=== PATIENT | male | born 1950 | race Caucasian/White ===

== ENCOUNTER 2017-03-30 07:36 | Inpatient (IN) | payer MEDICARE ==
[~2017-03-30] VITALS: Ht 172.7 cm; Wt 76.5 kg
[~2017-03-30 07:36] MED LIST: ASPI81 PO; HCTZ25 PO; LEVA500T33 PO; LEVO.125 PO; LISI-360 PO; LOVA1TAB47 PO
[2017-03-30 07:39] VITALS: BP 143/78; PULSE 97; RESP 18; TEMP 97.7; O2SAT 97
[2017-03-30] MEDS ORDERED: LOVA40TA PO (08:25)
[2017-03-30] MEDS ORDERED: HYDRODIURIL PO (08:25)
[2017-03-30] MEDS ORDERED: LEVO.125 PO (08:25)
[2017-03-30] MEDS ORDERED: LISI10TA3 PO (08:25)
[2017-03-30] MEDS ORDERED: ASPI-147 PO (08:25)
[2017-03-30 08:36] LABS: AUTOMATED NEUTROPHIL # 6.3 TH/MM3 (1.8-7.7); BASOPHIL # 0.1 TH/MM3 (0-0.2); EOSINOPHIL # 0.1 TH/MM3 (0-0.4); EOSINOPHIL % 1.4 % (0.0-4.0); HEMOGLOBIN 16.4 GM/DL (13.0-17.0); LYMPH % 15.2 % (9.0-44.0); LYMPHOCYTE # 1.4 TH/MM3 (1.0-4.8); MEAN CELL VOLUME 89.5 FL (80.0-100.0); MEAN CORPUSCULAR HEMOGLOBIN 31.3 PG (27.0-34.0); MEAN PLATELET VOLUME 7.3 FL (7.0-11.0); MONO % 11.9 % (0.0-8.0); MONOCYTE # 1.1 TH/MM3 (0-0.9); NEUT % 70.5 % (16.0-70.0); PLATELET COUNT 344 TH/MM3 (150-450); RED BLOOD COUNT 5.26 MIL/MM3 (4.50-5.90); RED CELL DISTRIBUTION WIDTH 13.5 % (11.6-17.2); WHITE BLOOD COUNT 8.9 TH/MM3 (4.0-11.0)
[2017-03-30 08:48] LABS: PROTHROMBIN TIME - PATIENT 9.9 SEC (9.8-11.6)
[2017-03-30 08:50] LABS: ALT (GPT) 14 U/L (12-78)
[2017-03-30 08:51] LABS: ALBUMIN 3.9 GM/DL (3.4-5.0); AST (GOT) 18 U/L (15-37); BICARBONATE 29.6 MEQ/L (21.0-32.0); BLOOD UREA NITROGEN 10 MG/DL (7-18); CALCIUM 9.2 MG/DL (8.5-10.1); CHLORIDE 100 MEQ/L (98-107); CREATININE 1.07 MG/DL (0.60-1.30); GLOMERULAR FILTRATION RATE 69 ML/MIN (>89); GLUCOSE,RANDOM 90 MG/DL (74-106); SODIUM (NA) 134 MEQ/L (136-145)
[2017-03-30 08:53] LABS: ALKALINE PHOSPHATASE 67 U/L (45-117); TOTAL BILIRUBIN ADULT 0.4 MG/DL (0.2-1.0); TOTAL PROTEIN 7.5 GM/DL (6.4-8.2)
--- NOTE | 2017-03-30 09:23 | RADRPT ---
EXAM DATE/TIME: 03/30/2017 08:28 [facility] COMPARISON: No previous studies available for comparison. INDICATIONS : Right leg pain. MEDICAL HISTORY : Hypothyroidism. Hypertension. Hyperlipidemia. SURGICAL HISTORY : Left femoral bypass. ENCOUNTER: Initial ACUITY: 3 days PAIN SCORE: 2/10 LOCATION: Left leg. TECHNIQUE: Venous ultrasound of the leg was performed from the inguinal ligament to the proximal calf. Real-usman e, color Doppler and spectral tracing, compression and augmentation techniques were used. FINDINGS: There is normal compressibility of the deep venous system from the inguinal region to the proximal ca lf. No echogenic clot is seen in the lumen of the common femoral, femoral, popliteal, and posterior tibial veins. There is a normal response of the venous system to proximal and distal augmentation an d respiration. There is thrombosis of the femoral bypass graft. CONCLUSION: 1. No DVT right leg. 2. The femoral bypass graft appears occluded. Heber Valenzuela MD on March 30, 2017 at 9:18 Board Certified Radiologist. This report was verified electronically.
--- NOTE | 2017-03-30 09:59 | PD ---
HPI Chief Complaint: Musculoskeletal Complaint Time Seen by Provider: 08:03 Travel History International Travel<30 days: No Contact w/Intl Traveler<30days: No Traveled to known affect area: No History of Present Illness HPI 67-year-old male presents to the emergency department with a history of charley horse symptoms in the right calf Thursday night, with residual pain into the right medial thigh since that time. Denies continued pain in the lower extremity at this time. Patient has history of femoropopliteal bypass with Dr. Flores in 2014. He shouldn't was recently scheduled to have follow-up with him on February 25 but did not have his vascular scan prior to his visit so this was rescheduled. Patient states the pain is worse at night when he and when he first gets up. It seems to improve with ambulation. He denies numbness and tingling or weakness in the lower extremity on the right. His no other complaints. PFSH Past Medical History Cardiovascular Problems: Yes (BYPASS LEG, DR FLORES) High Cholesterol: Yes Hypertension: Yes Thyroid Disease: Yes (HYPO) Triglycerides - High: Yes Past Surgical History Other Surgery: Yes (RIGHT LEG FEM POP) Social History Alcohol Use: Yes (OCCASSIONAL) Tobacco Use: Yes (1 PPD) Substance Use: No Allergies-Medications (Allergen,Severity, Reaction): Coded Allergies: No Known Allergies (Verified , 03/19/13) Reported Meds & Prescriptions Reported Meds & Active Scripts Active Reported Lovastatin 40 Mg Tab 60 Mg PO DAILY Lisinopril 10 Mg Tab 10 Mg PO DAILY [Hydrodiuril] 25 Mg PO Ecotrin Low Strength (Aspirin) 81 Mg Tabdr 81 Mg PO DAILY Synthroid (Levothyroxine Sodium) 125 Mcg Tab 125 Mcg PO DAILY Review of Systems Except as stated in HPI: all other systems reviewed are Neg General / Constitutional: No: Fever Eyes: No: Visual changes HENT: No: Headaches Cardiovascular: No: Chest Pain or Discomfort Respiratory: No: Shortness of Breath Gastrointestinal: No: Abdominal Pain Genitourinary: No: Dysuria Musculoskeletal: Positive: Myalgias, No: Pain Skin: No Rash Neurologic: No: Weakness Psychiatric: No: Depression Endocrine: No: Polydipsia Hematologic/Lymphatic: No: Easy Bruising Physical Exam Narrative GENERAL: Patient appears in no obvious distress. SKIN: Warm and dry. Color. Normal turgor. The right lower extremity has some decreased pallor and question mottling of the toes. This area is cool to the touch, but nontender. HEAD: Atraumatic. Normocephalic. EYES: Pupils equal and round. No scleral icterus. No injection or drainage. ENT: No nasal bleeding or discharge. Mucous membranes pink and moist. NECK: Trachea midline. No JVD. CARDIOVASCULAR: Regular rate and rhythm. Murmurs gallops or rubs appreciated. Pulses are not appreciated in the right foot or posterior tibialis with Doppler. RESPIRATORY: No accessory muscle use. Clear to auscultation. Breath sounds equal bilaterally. GASTROINTESTINAL: Abdomen soft, non-tender, nondistended. Hepatic and splenic margins not palpable. MUSCULOSKELETAL: Extremities without clubbing, cyanosis, or edema. No obvious deformities. NEUROLOGICAL: Awake and alert. No obvious cranial nerve deficits. Motor grossly within normal limits. Five out of 5 muscle strength in the arms and legs. Normal speech. PSYCHIATRIC: Appropriate mood and affect; insight and judgment normal. Data Data Last Documented VS Vital Signs Date Time Temp Pulse Resp B/P (MAP) Pulse Ox O2 Delivery O2 Flow Rate FiO2 03/30/17 07:39 97.7 97 18 143/78 (99) 97 Room Air Orders Orders Us Leg Venous Doppler (03/30/17 08:12) Complete Blood Count With Diff (03/30/17 08:12) Comprehensive Metabolic Panel (03/30/17 08:12) Prothrombin Time / Inr (Pt) (03/30/17 08:12) Act Partial Throm Time (Ptt) (03/30/17 08:12) Heparin Inj (Heparin Inj) (03/30/17 10:15) Heparin-D5w 25,000 U/250 Ml (Heparin-D5w (03/30/17 10:15) Act Partial Throm Time (Ptt) (03/30/17 10:06) Cbc No Diff, Includes Plts (03/30/17 10:06) Cbc No Diff, Includes Plts (04/02/17 06:00) Act Partial Throm Time (Ptt) (03/30/17 17:06) Occult Blood (Hemoccult) Stool (03/30/17 10:06) Invasive Rad Dept Consult (03/30/17 ) Labs Laboratory Tests Test 03/30/17 08:20 White Blood Count 8.9 TH/MM3 Red Blood Count 5.26 MIL/MM3 Hemoglobin 16.4 GM/DL Hematocrit 47.0 % Mean Corpuscular Volume 89.5 FL Mean Corpuscular Hemoglobin 31.3 PG Mean Corpuscular Hemoglobin Concent 35.0 % Red Cell Distribution Width 13.5 % Platelet Count 344 TH/MM3 Mean Platelet Volume 7.3 FL Neutrophils (%) (Auto) 70.5 % Lymphocytes (%) (Auto) 15.2 % Monocytes (%) (Auto) 11.9 % Eosinophils (%) (Auto) 1.4 % Basophils (%) (Auto) 1.0 % Neutrophils # (Auto) 6.3 TH/MM3 Lymphocytes # (Auto) 1.4 TH/MM3 Monocytes # (Auto) 1.1 TH/MM3 Eosinophils # (Auto) 0.1 TH/MM3 Basophils # (Auto) 0.1 TH/MM3 CBC Comment DIFF FINAL Differential Comment Prothrombin Time 9.9 SEC Prothromb Time International Ratio 1.0 RATIO Activated Partial Thromboplast Time 23.8 SEC Blood Urea Nitrogen 10 MG/DL Creatinine 1.07 MG/DL Random Glucose 90 MG/DL Total Protein 7.5 GM/DL Albumin 3.9 GM/DL Calcium Level 9.2 MG/DL Alkaline Phosphatase 67 U/L Aspartate Amino Transf (AST/SGOT) 18 U/L Alanine Aminotransferase (ALT/SGPT) 14 U/L Total Bilirubin 0.4 MG/DL Sodium Level 134 MEQ/L Potassium Level 4.4 MEQ/L Chloride Level 100 MEQ/L Carbon Dioxide Level 29.6 MEQ/L Anion Gap 4 MEQ/L Estimat Glomerular Filtration Rate 69 ML/MIN MDM Medical Decision Making Medical Screen Exam Complete: Yes Emergency Medical Condition: Yes Differential Diagnosis DVT. Thrombosis of graft. Claudication. Narrative Course Patient is medically stable at time of exam. Including CBC, CMP, and coagulation studies. Ultrasound of the right lower extremities ordered. CBC is unremarkable. Coagulation studies show PT of 9.9, INR 1.0, APTT is 23.8. Chemistries are normal. Ultrasound shows no DVT to the right leg but the femoral bypass graft appears included per radiologist. Call was placed to Dr. Flores, the patient's vascular surgeon, and he recommends consulting interventional radiologist to angiogram from the lysis of the graft. Patient is started on heparin per DVT protocol. Call was placed hospitalist for admission. Consult was placed to interventional radiology for the angiogram/thrombolysis. Condition: Stable Ryan Gibson Mar 30, 2017 09:59
[2017-03-30] MEDS ORDERED: HEPARIN SODIUM - IV 10,000 UNITS/10 ML VIAL IV PUSH ONE (10:15)
[2017-03-30 10:26] VITALS: BP 143/73; PULSE 78; RESP 18; O2SAT 96
--- NOTE | 2017-03-30 10:29 | PD ---
Data Data Last Documented VS Vital Signs Date Time Temp Pulse Resp B/P (MAP) Pulse Ox O2 Delivery O2 Flow Rate FiO2 03/30/17 10:26 78 18 143/73 (96) 96 Room Air 03/30/17 07:39 97.7 Orders Orders Us Leg Venous Doppler (03/30/17 08:12) Complete Blood Count With Diff (03/30/17 08:12) Comprehensive Metabolic Panel (03/30/17 08:12) Prothrombin Time / Inr (Pt) (03/30/17 08:12) Act Partial Throm Time (Ptt) (03/30/17 08:12) Heparin Inj (Heparin Inj) (03/30/17 10:15) Heparin-D5w 25,000 U/250 Ml (Heparin-D5w (03/30/17 10:15) Act Partial Throm Time (Ptt) (03/30/17 10:06) Cbc No Diff, Includes Plts (03/30/17 10:06) Cbc No Diff, Includes Plts (04/02/17 06:00) Act Partial Throm Time (Ptt) (03/30/17 17:06) Occult Blood (Hemoccult) Stool (03/30/17 10:06) Admit Order (Ed Use Only) (03/30/17 10:21) Invasive Rad Dept Consult (03/30/17 10:21) Admit To Inpatient (03/30/17 ) Vital Signs (Adult) [place].Q4H (03/30/17 10:21) Inpatient Certification (03/30/17 ) Activity Bed Rest With Brp (03/30/17 10:21) Diet Npo Except Meds (03/30/17 Lunch) Acetaminophen (Tylenol) (03/30/17 10:30) Ondansetron Inj (Zofran Inj) (03/30/17 10:30) Morphine Inj (Morphine Inj) (03/30/17 10:30) Acetamin-Hydrocod 325-5 Mg (Wendell 5-325 (03/30/17 10:30) Complete Blood Count With Diff (03/31/17 06:00) Basic Metabolic Panel (Bmp) (03/31/17 06:00) Magnesium (Mg) (03/31/17 06:00) Levothyroxine (Synthroid) (03/31/17 09:00) Lisinopril (Prinivil) (03/31/17 09:00) Pravastatin (Pravachol) (03/31/17 09:00) Clonidine (Catapres) (03/30/17 10:30) Enalaprilat Inj (Vasotec Inj) (03/30/17 10:30) Labs Laboratory Tests Test 03/30/17 08:20 White Blood Count 8.9 TH/MM3 Red Blood Count 5.26 MIL/MM3 Hemoglobin 16.4 GM/DL Hematocrit 47.0 % Mean Corpuscular Volume 89.5 FL Mean Corpuscular Hemoglobin 31.3 PG Mean Corpuscular Hemoglobin Concent 35.0 % Red Cell Distribution Width 13.5 % Platelet Count 344 TH/MM3 Mean Platelet Volume 7.3 FL Neutrophils (%) (Auto) 70.5 % Lymphocytes (%) (Auto) 15.2 % Monocytes (%) (Auto) 11.9 % Eosinophils (%) (Auto) 1.4 % Basophils (%) (Auto) 1.0 % Neutrophils # (Auto) 6.3 TH/MM3 Lymphocytes # (Auto) 1.4 TH/MM3 Monocytes # (Auto) 1.1 TH/MM3 Eosinophils # (Auto) 0.1 TH/MM3 Basophils # (Auto) 0.1 TH/MM3 CBC Comment DIFF FINAL Differential Comment Prothrombin Time 9.9 SEC Prothromb Time International Ratio 1.0 RATIO Activated Partial Thromboplast Time 23.8 SEC Blood Urea Nitrogen 10 MG/DL Creatinine 1.07 MG/DL Random Glucose 90 MG/DL Total Protein 7.5 GM/DL Albumin 3.9 GM/DL Calcium Level 9.2 MG/DL Alkaline Phosphatase 67 U/L Aspartate Amino Transf (AST/SGOT) 18 U/L Alanine Aminotransferase (ALT/SGPT) 14 U/L Total Bilirubin 0.4 MG/DL Sodium Level 134 MEQ/L Potassium Level 4.4 MEQ/L Chloride Level 100 MEQ/L Carbon Dioxide Level 29.6 MEQ/L Anion Gap 4 MEQ/L Estimat Glomerular Filtration Rate 69 ML/MIN [facility] Supervised Visit with WILDA: Yes Narrative Course The history, exam, and medical decision-making in the associated midlevel provider note were completed with my assistance. I reviewed and agree with the findings presented. I attest that I had a [id number] encounter with the patient on the same day, and personally performed and documented my assessment and findings in the medical record. *My assessment and Findings: This is a 67-year-old male who has a history of femoropopliteal bypass performed by Dr. Flores who presents to the department with 3 days of pain and cramping in his right leg associated with illness. On exam he has no palpable pulse and a cool lower extremity. Ultrasound demonstrates an occlusion of the bypass consistent with his clinical exam. Physician wet process miller head assistant spoke to Dr. Flores. Patient was started on heparin and will be admitted for interventional radiology attempt thrombolysis. Condition: Stable Jaki Macias MD Mar 30, 2017 10:29
[2017-03-30] MEDS ORDERED: MORPHINE SULFATE 2 MG/ML INJ IV PUSH PRN (11:00)
[2017-03-30] MEDS ORDERED: HEPARIN-D5W 25,000 U/250 ML 250 ML IV PRN (11:00)
[2017-03-30] MEDS ORDERED: ACETAMINOPHEN 325 MG TAB PO PRN (11:00)
[2017-03-30] MEDS ORDERED: cloNIDine HCL 0.1 MG TAB PO PRN (11:00)
[2017-03-30] MEDS ORDERED: ENALAPRILAT 1.25 MG/ML VIAL IV PUSH PRN (11:00)
[2017-03-30] MEDS ORDERED: ONDANSETRON HCL 4 MG/2 ML VIAL IV PRN (11:00)
[2017-03-30] MEDS ORDERED: ACETAMINOPHEN/HYDROcodone 325 MG/5 MG TAB PO PRN (11:00)
[2017-03-30] MEDS: LEVOTHYROXINE SODIUM 125 MCG TAB PO SCH (11:00)
--- NOTE | 2017-03-30 11:20 | HHI.HP ---
HPI Service [facility] Hospitalists Primary Care Physician Herbert Bravo MD Admission Diagnosis arterial occlusion Chief Complaint: Right calf pain Travel History International Travel<30 Days: No Contact w/Intl Traveler <30 Da: No Traveled to Known Affected Are: No History of Present Illness Mr. Miller is a pleasant 67 y/o WM with PVD s/p right fem-pop [place] [address] Folres, HTN, hyperlipidemia, and tobacco use. He presented to the ED at [facility] on 03/30/17 with complaints of right calf pain and right foot coolness that began about 2-3 days ago. He states that he started noticing some cramping pain in the right calf Thursday night, with residual pain into the right medial thigh since that time. He was recently scheduled to see Dr. Flores in follow-up on February 25 but did not have his vascular scan done prior to his visit so this was rescheduled. Patient states the pain is worse at night when he and when he first gets up. They were unable to get pulses in the right foot on Dopplar so LE US performed in the ED revealed a thrombus in the femoral bypass graft, there was no evidence of DVT. Dr. Flores was contacted from the ED and he recommended IR evaluation for possible thrombolysis. Pt has been started on a heparin gtt. Review of Systems Constitutional: DENIES: Fever, Chills, Change in appetite Eyes: DENIES: Vision loss Ears, nose, mouth, throat: DENIES: Hearing loss Respiratory: DENIES: Shortness of breath Cardiovascular: COMPLAINS OF: Claudication, DENIES: Chest pain, Palpitations, Lower Extremity Edema Gastrointestinal: DENIES: Abdominal pain, Black stools, Bloody stools, Diarrhea , Nausea, Vomiting Genitourinary: DENIES: Hematuria, Dysuria Neurologic: DENIES: Headache, Paresthesias Psychiatric: DENIES: Confusion Past Family Social History Past Medical History HTN Hyperlipidemia Hypertensive CKD, stage 2 Hypothyroidism PVD Vitamin D deficiency Diverticulosis Carotid artery stenosis Past Surgical History Fem-Pop bypass in 01/[address] 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 HEENT: Atraumatic. Normocephalic. No temporal or scalp tenderness. No scleral icterus. Airway patent. NECK: Trachea midline, supple, nontender CARDIO: Regular. RESP: CTA bilaterally. No wheezes, rales, or rhonchi. ABD: +BS, soft, non-tender, nondistended. EXT: RLE has some decreased pallor and slight mottling of the toes. Right foot is cool to the touch, but nontender. Pulses are not appreciated in the right foot or posterior tibialis with Doppler. NEURO: Awake and alert. Motor and sensory grossly within normal limits. Normal speech. Laboratory Laboratory Tests Test 03/30/17 08:20 White Blood Count 8.9 Red Blood Count 5.26 Hemoglobin 16.4 Hematocrit 47.0 Mean Corpuscular Volume 89.5 Mean Corpuscular Hemoglobin 31.3 Mean Corpuscular Hemoglobin Concent 35.0 Red Cell Distribution Width 13.5 Platelet Count 344 Mean Platelet Volume 7.3 Neutrophils (%) (Auto) 70.5 Lymphocytes (%) (Auto) 15.2 Monocytes (%) (Auto) 11.9 Eosinophils (%) (Auto) 1.4 Basophils (%) (Auto) 1.0 Neutrophils # (Auto) 6.3 Lymphocytes # (Auto) 1.4 Monocytes # (Auto) 1.1 Eosinophils # (Auto) 0.1 Basophils # (Auto) 0.1 CBC Comment DIFF FINAL Differential Comment Prothrombin Time 9.9 Prothromb Time International Ratio 1.0 Activated Partial Thromboplast Time 23.8 Blood Urea Nitrogen 10 Creatinine 1.07 Random Glucose 90 Total Protein 7.5 Albumin 3.9 Calcium Level 9.2 Alkaline Phosphatase 67 Aspartate Amino Transf (AST/SGOT) 18 Alanine Aminotransferase (ALT/SGPT) 14 Total Bilirubin 0.4 Sodium Level 134 Potassium Level 4.4 Chloride Level 100 Carbon Dioxide Level 29.6 Anion Gap 4 Estimat Glomerular Filtration Rate 69 Result Diagram: 03/30/1781903/30/17819 Imaging Last Impressions Lower Extremity Ultrasound 03/30/17811 Signed Impressions: Service Date/Time: Thursday, March 30, 2017 08:28 - CONCLUSION: 1. No DVT right leg. 2. The femoral bypass graft appears occluded. MD Mackenzie Roberto VTE Risk Assessment Mackenzie VTE Risk Assessment: Mod/High Risk (score >= 2) Caprini Risk Assessment Model Point Value = 1 Point Value = 2 Point Value = 3 Point Value = 5 Age 41-60 Minor surgery BMI > 25 kg/m2 Swollen legs Varicose veins or History of unexplained or recurrent spontaneous Oral contraceptives or hormone replacement Sepsis (< 1 month) Serious lung disease, including pneumonia (< 1 month) Abnormal pulmonary function Acute myocardial infarction Congestive heart failure (< 1 month) History of inflammatory bowel disease Medical patient at bed rest Age 61-74 Arthroscopic surgery Major open surgery (> 45 min) Laparoscopic surgery (> 45 min) Malignancy Confined to bed (> 72 hours) Immobilizing plaster cast Central venous access Age >= 75 History of VTE Family history of VTE Factor V Leiden Prothrombin [id number] Lupus anticoagulant Anticardiolipin antibodies Elevated serum homocysteine Heparin-induced thrombocytopenia Other congenital or acquired thrombophilia Stroke (< 1 month) Elective arthroplasty Hip, pelvis, or leg fracture Acute spinal cord injury (< 1 month) Prophylaxis Regimen Total Risk Factor Score Risk Level Prophylaxis Regimen 0-1 Low Early ambulation 2 Moderate Order ONE of the following: *Sequential Compression Device (SCD) *Heparin 5000 units SQ BID 3-4 Higher Order ONE of the following medications: *Heparin 5000 units SQ TID *Enoxaparin/Lovenox 40 mg SQ daily (WT < 150 kg, CrCl > 30 mL/min) *Enoxaparin/Lovenox 30 mg SQ daily (WT < 150 kg, CrCl > 10-29 mL/min) *Enoxaparin/Lovenox 30 mg SQ BID (WT < 150 kg, CrCl > 30 mL/min) AND/OR *Sequential Compression Device (SCD) 5 or more Highest Order ONE of the following medications: *Heparin 5000 units SQ TID (Preferred with Epidurals) *Enoxaparin/Lovenox 40 mg SQ daily (WT < 150 kg, CrCl > 30 mL/min) *Enoxaparin/Lovenox 30 mg SQ daily (WT < 150 kg, CrCl > 10-29 mL/min) *Enoxaparin/Lovenox 30 mg SQ BID (WT < 150 kg, CrCl > 30 mL/min) AND *Sequential Compression Device (SCD) Assessment and Plan Problem List: (1) Arterial occlusion, lower extremity ICD Codes: I70.209 - Unspecified atherosclerosis of [place] arteries of extremities, unspecified extremity Status: Acute Plan: - Pt is a 67 y/o WM with PVD s/p right fem-pop [place] [address] Flores, HTN, hyperlipidemia, and tobacco use. - He presented to the ED at [facility] on 03/30/17 with complaints of right calf pain and right foot coolness that began about 2-3 days ago. - Pts RLE and foot were noticibly cooler than his left on examination. They were unable to get pulses in the right foot on Dopplar - LE US performed in the ED revealed a thrombus in the femoral bypass graft, there was no evidence of DVT. - Dr. Flores was contacted from the ED and he recommended IR evaluation for possible thrombolysis. - CTA is pending - IR consultation is ordered - Pt has been started on Heparin gtt per protocol - Pain control PRN - Supportive care - Further recommendations as the case develops (2) HTN (hypertension) ICD Codes: I10 - Essential (primary) hypertension Status: Chronic Plan: - Home meds resumed except HCTZ - Monitor - Vasotec and Clonidine PRN (3) PVD (peripheral vascular disease) ICD Codes: I73.9 - Peripheral vascular disease, unspecified Status: Chronic Plan: - Pt has previously underwent Fem-Pop bypass in 01/[address] Flores and arthrectomy of right popliteal artery in 01/2008 (4) Hypothyroidism ICD Codes: E03.9 - Hypothyroidism, unspecified Status: Chronic Plan: - Home meds resumed Assessment and Plan Patient examined. Assessment and plan formulated with Josselin Goncalves PA-C. I agree with the above. Physician Certification 2 Midnight Certification Type: Admission for Inpatient Services Order for Inpatient Services The services are ordered in accordance with Medicare regulations or non- Medicare payer requirements, as applicable. In the case of services not specified as inpatient-only, they are appropriately provided as inpatient services in accordance with the 2-midnight benchmark. Estimated LOS (days): 3 3 days is the estimated time the patient will need to remain in the hospital, assuming treatment plan goals are met and no additional complications. Post-Hospital Plan: Not yet determined Josselin Goncalves Mar 30, 2017 11:20 Hill Miles DO Apr 02, 2017 13:49
[2017-03-30] MEDS ORDERED: IOHEXOL 350 MG/ML 10 ML VIAL (for RAD DIAG) IVCONTRAST ONE (11:40)
[2017-03-30] MEDS: NS + KCL 20 MEQ INJ 1,000 ML IV SCH (12:47)
--- NOTE | 2017-03-30 14:23 | RADRPT ---
EXAM DATE/TIME: 03/30/2017 11:15 [facility] COMPARISON: No previous studies available for comparison. INDICATIONS : Right leg pain for 3 days. Abnormal ultrasound IV CONTRAST: 75 cc Omnipaque 350 (iohexol) IV RADIATION DOSE: 10.10 CTDIvol (mGy) MEDICAL HISTORY : Hypertension. Cardiovascular disease SURGICAL HISTORY : right leg fem pop bypass graft ENCOUNTER: Initial ACUITY: 3 days PAIN SCALE: 10/10 LOCATION: Right leg TECHNIQUE: Volumetric scanning was performed using a multi-row detector CT scanner. The data was post processed with a variety of visualization algorithms including full volume maximum intensity projection, multi -planar sliding thin slab reformation, curved planar reformation, and surface rendering techniques. Using automated exposure control and adjustment of the mA and/or kV according to patient size, radiat ion dose was kept as low as reasonably achievable to obtain optimal diagnostic quality images. DICO M format image data is available electronically for review and comparison. FINDINGS: Aorta/inflow: Scattered calcified atherosclerotic plaque involving the infrarenal aorta and inflow vessels. These a re patent and without aneurysmal change. Both internal iliac arteries are patent. The celiac, SMA, IM A, and renal arteries are patent. Right lower extremity: There is a common femoral artery to above-knee popliteal artery bypass. This is thrombosed. The profu nda femoris is patent. The the zuni SFA and [id number] popliteal artery is thrombosed. At the l evel of the tibial plateaus there is reconstitution of the zuni popliteal artery. This is distal to the distal anastomosis. All 3 trifurcation vessels are occluded. The anterior tibial artery occludes at the level of the ankle joint. No dorsalis pedis artery is observed. The posterior tibial artery o ccludes within the distal calf. Peroneal artery is occluded at its origin. Left lower extremity: The outflow is patent. The anterior tibial artery is the dominant runoff to the foot. Several mild st enoses are seen proximally the dorsalis pedis artery is formed. Tibioperoneal trunk shows calcified p laque with mild areas of luminal narrowing. Posterior tibial artery is chronically occluded within th e distal calf. Peroneal artery is diffusely small in caliber and slowly tapers proximal to the ankle joint. Other structures: The liver is diffusely low in attenuation. A 1 cm cyst is seen involving segment 4 of the liver. Scat tered colonic diverticuli without acute inflammation. CONCLUSION: 1. Acute thrombosis of the femoropopliteal bypass on the right. Thrombus extends throughout the bypas s and into the zuni [id number] popliteal artery. The right inflow is patent. Poor evaluation th e outflow with no named vessel observed across the ankle joint. 2. Left inflow is patent. Outflow is via the anterior tibial artery. 3. Hepatic steatosis. 4. Colonic diverticulosis. Juan Austin Jr., MD on March 30, 2017 at 13:24 Board Certified Radiologist. This report was verified electronically.
[2017-03-30] MEDS ORDERED: MIDAZOLAM HCL 2 MG/2 ML VIAL ONE ×2 (14:33)
[2017-03-30] MEDS ORDERED: ceFAZolin 2 GM PREMIX 50 ML ONE (14:57)
--- NOTE | 2017-03-30 15:57 | PD.RAD ---
Post Procedure Progress Note Pre Procedure Diagnosis: (1) Arterial occlusion, lower extremity Post Procedure Diagnosis: (1) Arterial occlusion, lower extremity Procedure Date: Mar 30, 2017 Supervising Radiologist: Juan Austin JR Proceduralist/Assist: Amber Harkins, RT(R)(CV), Joaquin Shine, RT(R) Anesthesia: Conscious Sedation Plan of Activity Patient to Unit: Critical Care Patient Condition: Good See PACS Report for procedural detail/treatment Vascular-Arterial Procedure Procedure 1 Procedure Site: Right Leg Procedure(s): Angiogram, Thrombolysis Access Access Site(s): Left Femoral Artery Sheath(s) Remaining: Left Femoral Artery Findings: Limb threatening ischemia of right foot. Began 3 days ago. Sensory and motor function of right foot preserved. Angio shows acute occlusion of right fem-above knee pop bypass. Poor runoff without named vessel below ankle joint. Placed infusion catheter. Infuse TPA at 1mg/hr. Heparin 500U/hr. Return tomorrow morning for f/u angio. Plan ICU per protocol. Return tomorrow morning for f/u angio Jr. Norman,Juan Shankar MD Mar 30, 2017 15:57
[2017-03-30] MEDS: CATHFLO ACTIVASE INJ 10 MG in SODIUM CHLORID 0.9% 500 ML INJ 500 ML I-ARTERIAL PRN (17:00)
[2017-03-30 18:00] VITALS: PULSE 83
--- NOTE | 2017-03-30 18:04 | RADRPT ---
EXAM DATE/TIME: 03/30/2017 14:47 [facility] COMPARISON: No previous studies available for comparison. INDICATIONS : <<67-year-old gentleman with history of a right femoropopliteal bypass performed several years ago fo r a nonhealing ulcer involving the right foot. The patient now reports 3 days of right foot pain whic h has progressed from onset. Sensory and motor function of the right foot are preserved. Limb threate nicol ischemia noted. Angiography with intervention requested. MEDICAL HISTORY : <<High cholesterol HTN HYPO High triglycerides Cardiovascular disease>> SURGICAL HISTORY : <<Right leg FEM POP Bypass leg>> ENCOUNTER: Initial ACUITY: 1 day PAIN SCORE: 2/10 LOCATION: Right leg FLUORO TIME: <<7.8>> minutes IMAGE SERIES: 6 ACCESS SITE: Right Femoral artery SEDATION TIME: <<45>> minutes CONTRAST: 1.) <<70>> <<cc>> Visipaque (iodixanol) MEDICATION(S): 1.) <<2>> g cefazolin (Ancef) IV 2.) <<175>> mcg fentanyl (Sublimaze) IV 3.) <<3.5>> mg midazolam (Versed) IV Intra-procedural antibiotics were given as prescribed above. DEVICE(S): 1.) Right femoral popliteal graft artery <<5fr 50cm 135 shaft>> EV3 Infusion catheter PROCEDURE : 1. Ultrasound-guided puncture of the access site. 2. Conscious sedation with continuous EKG and oximetry monitoring. 3. Angiography of the <<right lower extremity>> 4. Angiography of the right below knee popliteal artery 5. Infusion for thrombolysis The risks, benefits and alternatives to the procedure were explained and verbal and written consent w as obtained. The site was prepped in sterile fashion. Full sterile technique was used, including ca p, mask, sterile gloves and gown and a large sterile sheet. Hand hygiene and 2% chlorhexidine and/or betadine/alcohol prep was utilized per protocol for cutaneous antisepsis. Sterile gel and sterile p robe cover were utilized for ultrasound guidance. The skin and subcutaneous tissues were infiltrated with local anesthetic solution. With ultrasound and fluoroscopic guidance the left common femoral artery was punctured and a vascular sheath was placed. <<The contralateral external iliac artery was selected with a omni-flush catheter. A staged right low er extremity angiogram was performed from the level of the groin to the foot. These diagnostic images reveal patent and flow on the right. The profunda femoris is patent. There is acute occlusion of the common femoral artery to above-knee popliteal artery bypass. There is occlusion of the [place] SFA an d popliteal artery. There is late reconstitution of the [place] popliteal artery below the distal anas tomosis. There is reconstitution of the anterior tibial artery which occludes in the distal calf. The peroneal artery shows diffuse small caliber and chronic occlusion at the mid calf. Posterior tibial artery is occluded. A 6 [place] Rabbi sheath was positioned in the common femoral artery on the right. A Actively Learn catheter was used to traverse the occluded bypass and utilized to select the patent [place] knee popliteal artery. Diagnostic angiography of the right lower leg was performed for this level to better highlight the anatomy. A 5 [place] 50 cm infusion length catheter was positioned throughout the bypass. The sheath was sutured in place. TPA thrombolysis was instituted at 1 mg per hour.>> Conscious sedation was performed with the prescribed dosages and duration as above in the presence of an independent trained radiology nurse to assist in the monitoring of the patient. EKG and oximetry remained stable throughout the procedure. CONCLUSION: Uncomplicated initiation of thrombolytic therapy as above. The patient has limb threatening ischemia of the right foot with preserved sensory and motor function. There is acute occlusion of the femoropo pliteal bypass as well as the distal trifurcation vessels. No named vessel is seen crossing the ankle joint. The patient will return tomorrow for followup angiogram. Juan Austin Jr., MD on March 30, 2017 at 17:55 Board Certified Radiologist. This report was verified electronically.
[2017-03-30] MEDS ORDERED: IODIXANOL 320 MG/ML 10 ML VIAL (for RAD SPEC) OTHER ONE (18:40)
[2017-03-30 18:45] LABS: HEMATOCRIT 43.7 % (39.0-51.0); HEMOGLOBIN 15.1 GM/DL (13.0-17.0); MEAN CELL VOLUME 89.8 FL (80.0-100.0); MEAN CORPUSCULAR HGB CONC 34.5 % (32.0-36.0); MEAN PLATELET VOLUME 7.6 FL (7.0-11.0); PLATELET COUNT 309 TH/MM3 (150-450); RED BLOOD COUNT 4.87 MIL/MM3 (4.50-5.90); RED CELL DISTRIBUTION WIDTH 13.5 % (11.6-17.2); WHITE BLOOD COUNT 10.7 TH/MM3 (4.0-11.0)
[2017-03-30 20:00] VITALS: PULSE 69
[2017-03-30] MEDS ORDERED: CHLORHEXIDINE GLUCONATE 2 % 1 PACK (2 CLOTHS)(extra cloths) TOPICAL PRN (20:00)
[2017-03-30 20:11] VITALS: O2SAT 94
[2017-03-30] MEDS: HYDROmorphone HCL PF 2 MG/ML VIAL IV PRN (20:12)
[2017-03-30 22:00] VITALS: PULSE 80
[2017-03-30 22:12] LABS: AUTOMATED NEUTROPHIL # 11.4 TH/MM3 (1.8-7.7); BASOPHIL # 0.1 TH/MM3 (0-0.2); BASOPHIL % 0.7 % (0.0-2.0); EOSINOPHIL # 0.1 TH/MM3 (0-0.4); EOSINOPHIL % 0.6 % (0.0-4.0); HEMATOCRIT 42.4 % (39.0-51.0); HEMOGLOBIN 14.5 GM/DL (13.0-17.0); LYMPH % 4.9 % (9.0-44.0); LYMPHOCYTE # 0.7 TH/MM3 (1.0-4.8); MEAN CELL VOLUME 89.7 FL (80.0-100.0); MEAN CORPUSCULAR HEMOGLOBIN 30.6 PG (27.0-34.0); MEAN CORPUSCULAR HGB CONC 34.1 % (32.0-36.0); MEAN PLATELET VOLUME 7.2 FL (7.0-11.0); MONO % 8.4 % (0.0-8.0); MONOCYTE # 1.1 TH/MM3 (0-0.9); NEUT % 85.4 % (16.0-70.0); PLATELET COUNT 242 TH/MM3 (150-450); RED BLOOD COUNT 4.73 MIL/MM3 (4.50-5.90); RED CELL DISTRIBUTION WIDTH 13.3 % (11.6-17.2); WHITE BLOOD COUNT 13.4 TH/MM3 (4.0-11.0)
[2017-03-31] VITALS (20 sets, daily range): BP systolic 122–151; BP diastolic 53–72; PULSE 55–81; RESP 16–26; TEMP 98.2; O2SAT 93–95
[2017-03-31] MEDS: NS + KCL 20 MEQ INJ 1,000 ML IV SCH ×3 (00:41→23:22)
[2017-03-31] MEDS: HYDROmorphone HCL PF 2 MG/ML VIAL IV PRN ×3 (03:52→20:22)
[2017-03-31 04:25] LABS: AUTOMATED NEUTROPHIL # 6.8 TH/MM3 (1.8-7.7); BASOPHIL # 0.1 TH/MM3 (0-0.2); BASOPHIL % 0.6 % (0.0-2.0); EOSINOPHIL # 0.1 TH/MM3 (0-0.4); EOSINOPHIL % 0.8 % (0.0-4.0); HEMATOCRIT 38.8 % (39.0-51.0); HEMOGLOBIN 13.5 GM/DL (13.0-17.0); LYMPH % 13.2 % (9.0-44.0); LYMPHOCYTE # 1.2 TH/MM3 (1.0-4.8); MEAN CELL VOLUME 89.2 FL (80.0-100.0); MEAN CORPUSCULAR HGB CONC 34.7 % (32.0-36.0); MONO % 9.4 % (0.0-8.0); MONOCYTE # 0.8 TH/MM3 (0-0.9); PLATELET COUNT 239 TH/MM3 (150-450); RED BLOOD COUNT 4.35 MIL/MM3 (4.50-5.90); RED CELL DISTRIBUTION WIDTH 13.6 % (11.6-17.2)
[2017-03-31] MEDS: CATHFLO ACTIVASE INJ 10 MG in SODIUM CHLORID 0.9% 500 ML INJ 500 ML I-ARTERIAL PRN (04:27)
[2017-03-31 05:21] LABS: BICARBONATE 26.6 MEQ/L (21.0-32.0); CALCIUM 7.6 MG/DL (8.5-10.1); CREATININE 0.85 MG/DL (0.60-1.30); MAGNESIUM 2.2 MG/DL (1.5-2.5)
[2017-03-31] MEDS ORDERED: CATHFLO ACTIVASE INJ 10 MG in SODIUM CHLORID 0.9% 500 ML INJ 500 ML I-ARTERIAL PRN (06:00)
[2017-03-31] MEDS: ATORVASTATIN 40 MG TAB PO SCH (07:47)
[2017-03-31] MEDS: LEVOTHYROXINE SODIUM 125 MCG TAB PO SCH (07:47)
[2017-03-31] MEDS: LISINOPRIL 10 MG TAB PO SCH (07:47)
[2017-03-31] MEDS ORDERED: PRAVASTATIN SOD 40 MG TAB PO SCH (09:00)
[2017-03-31] MEDS ORDERED: HEPARIN-D5W 25,000 U/250 ML 250 ML IV SCH (09:00)
[2017-03-31 10:57] LABS: AUTOMATED NEUTROPHIL # 6.6 TH/MM3 (1.8-7.7); BASOPHIL # 0.1 TH/MM3 (0-0.2); BASOPHIL % 0.6 % (0.0-2.0); EOSINOPHIL # 0.1 TH/MM3 (0-0.4); EOSINOPHIL % 1.1 % (0.0-4.0); HEMATOCRIT 36.9 % (39.0-51.0); HEMOGLOBIN 12.9 GM/DL (13.0-17.0); LYMPH % 12.9 % (9.0-44.0); LYMPHOCYTE # 1.1 TH/MM3 (1.0-4.8); MEAN CELL VOLUME 90.1 FL (80.0-100.0); MEAN CORPUSCULAR HEMOGLOBIN 31.5 PG (27.0-34.0); MEAN CORPUSCULAR HGB CONC 34.9 % (32.0-36.0); MEAN PLATELET VOLUME 7.4 FL (7.0-11.0); MONO % 10.8 % (0.0-8.0); NEUT % 74.6 % (16.0-70.0); PLATELET COUNT 223 TH/MM3 (150-450); RED CELL DISTRIBUTION WIDTH 13.3 % (11.6-17.2); WHITE BLOOD COUNT 8.9 TH/MM3 (4.0-11.0)
--- NOTE | 2017-03-31 10:58 | HHI.PR ---
Subjective Remarks Pt having issues with pain control since TPA started Otherwise no new complaints Objective Vitals Vital Signs Date Time Temp Pulse Resp B/P (MAP) Pulse Ox O2 Delivery O2 Flow Rate FiO2 03/31/17 10:00 61 03/31/17 08:35 94 Nasal Cannula 2.00 03/31/17 08:21 16 03/31/17 08:00 61 03/31/17 06:00 58 03/31/17 04:00 66 03/31/17 02:00 67 03/31/17 00:00 73 03/30/17 22:00 80 03/30/17 20:11 94 Nasal Cannula 2.00 03/30/17 20:00 69 03/30/17 18:00 83 03/30/17 17:05 18 03/30/17 13:44 Result Diagram: 03/31/17 0400 03/31/17 0400 Other Results Laboratory Tests Test 03/30/17 08:20 03/30/17 16:20 03/30/17 17:13 03/30/17 21:35 White Blood Count 8.9 TH/MM3 10.7 TH/MM3 13.4 TH/MM3 Red Blood Count 5.26 MIL/MM3 4.87 MIL/MM3 4.73 MIL/MM3 Hemoglobin 16.4 GM/DL 15.1 GM/DL 14.5 GM/DL Hematocrit 47.0 % 43.7 % 42.4 % Mean Corpuscular Volume 89.5 FL 89.8 FL 89.7 FL Mean Corpuscular Hemoglobin 31.3 PG 31.0 PG 30.6 PG Mean Corpuscular Hemoglobin Concent 35.0 % 34.5 % 34.1 % Red Cell Distribution Width 13.5 % 13.5 % 13.3 % Platelet Count 344 TH/MM3 309 TH/MM3 242 TH/MM3 Mean Platelet Volume 7.3 FL 7.6 FL 7.2 FL Neutrophils (%) (Auto) 70.5 % 85.4 % Lymphocytes (%) (Auto) 15.2 % 4.9 % Monocytes (%) (Auto) 11.9 % 8.4 % Eosinophils (%) (Auto) 1.4 % 0.6 % Basophils (%) (Auto) 1.0 % 0.7 % Neutrophils # (Auto) 6.3 TH/MM3 11.4 TH/MM3 Lymphocytes # (Auto) 1.4 TH/MM3 0.7 TH/MM3 Monocytes # (Auto) 1.1 TH/MM3 1.1 TH/MM3 Eosinophils # (Auto) 0.1 TH/MM3 0.1 TH/MM3 Basophils # (Auto) 0.1 TH/MM3 0.1 TH/MM3 CBC Comment DIFF FINAL DIFF FINAL Differential Comment Prothrombin Time 9.9 SEC Prothromb Time International Ratio 1.0 RATIO Activated Partial Thromboplast Time 23.8 SEC 40.8 SEC 35.9 SEC Blood Urea Nitrogen 10 MG/DL Creatinine 1.07 MG/DL Random Glucose 90 MG/DL Total Protein 7.5 GM/DL Albumin 3.9 GM/DL Calcium Level 9.2 MG/DL Alkaline Phosphatase 67 U/L Aspartate Amino Transf (AST/SGOT) 18 U/L Alanine Aminotransferase (ALT/SGPT) 14 U/L Total Bilirubin 0.4 MG/DL Sodium Level 134 MEQ/L Potassium Level 4.4 MEQ/L Chloride Level 100 MEQ/L Carbon Dioxide Level 29.6 MEQ/L Anion Gap 4 MEQ/L Estimat Glomerular Filtration Rate 69 ML/MIN Nasal Screen MRSA (PCR) MRSA NOT DETECTED Fibrinogen 361 mg/dL 201 mg/dL Test 03/31/17 04:00 03/31/17 09:50 White Blood Count 9.0 TH/MM3 Red Blood Count 4.35 MIL/MM3 Hemoglobin 13.5 GM/DL Hematocrit 38.8 % Mean Corpuscular Volume 89.2 FL Mean Corpuscular Hemoglobin 31.0 PG Mean Corpuscular Hemoglobin Concent 34.7 % Red Cell Distribution Width 13.6 % Platelet Count 239 TH/MM3 Mean Platelet Volume 7.0 FL Neutrophils (%) (Auto) 76.0 % Lymphocytes (%) (Auto) 13.2 % Monocytes (%) (Auto) 9.4 % Eosinophils (%) (Auto) 0.8 % Basophils (%) (Auto) 0.6 % Neutrophils # (Auto) 6.8 TH/MM3 Lymphocytes # (Auto) 1.2 TH/MM3 Monocytes # (Auto) 0.8 TH/MM3 Eosinophils # (Auto) 0.1 TH/MM3 Basophils # (Auto) 0.1 TH/MM3 CBC Comment DIFF FINAL Differential Comment Activated Partial Thromboplast Time 32.4 SEC 34.5 SEC Fibrinogen 214 mg/dL 203 mg/dL Blood Urea Nitrogen 9 MG/DL Creatinine 0.85 MG/DL Random Glucose 113 MG/DL Calcium Level 7.6 MG/DL Magnesium Level 2.2 MG/DL Sodium Level 137 MEQ/L Potassium Level 4.0 MEQ/L Chloride Level 104 MEQ/L Carbon Dioxide Level 26.6 MEQ/L Anion Gap 6 MEQ/L Estimat Glomerular Filtration Rate 89 ML/MIN Imaging Last Impressions Lower Extremity Ultrasound 03/30/17811 Signed Impressions: Service Date/Time: Thursday, March 30, 2017 08:28 - CONCLUSION: 1. No DVT right leg. 2. The femoral bypass graft appears occluded. Heber Valenzuela MD Therapeutic Infusion 03/30/17 0000 Signed Impressions: Service Date/Time: Thursday, March 30, 2017 14:47 - CONCLUSION: Uncomplicated initiation of thrombolytic therapy as above. The patient has limb threatening ischemia of the right foot with preserved sensory and motor function. There is acute occlusion of the femoropopliteal bypass as well as the distal trifurcation vessels. No named vessel is seen crossing the ankle joint. The patient will return tomorrow for followup angiogram. Juan Austin Jr., MD Aorta w/Runoff CTA 03/30/17 0000 Signed Impressions: Service Date/Time: Thursday, March 30, 2017 11:15 - CONCLUSION: 1. Acute thrombosis of the femoropopliteal bypass on the right. Thrombus extends throughout the bypass and into the [place] [id number] popliteal artery. The right inflow is patent. Poor evaluation the outflow with no named vessel observed across the ankle joint. 2. Left inflow is patent. Outflow is via the anterior tibial artery. 3. Hepatic steatosis. 4. Colonic diverticulosis. Juan Austin Jr., MD Last Impressions Lower Extremity Ultrasound 03/30/17811 Signed Impressions: Service Date/Time: Thursday, March 30, 2017 08:28 - CONCLUSION: 1. No DVT right leg. 2. The femoral bypass graft appears occluded. Heber Valenzuela MD Objective Remarks General: NAD, AAOx3 Chest: CTA Cardiac: Regular Abd: +BS, soft ND/NT Ext: Right foot is slightly warmer than yesterday, no palpable pulses in the right foot, some mottling and darkened areas on the toes A/P Problem List: (1) Arterial occlusion, lower extremity ICD Codes: I70.209 - Unspecified atherosclerosis of [place] arteries of extremities, unspecified extremity Status: Acute Plan: - Pt is a 67 y/o WM with PVD s/p right fem-pop bypass [place] [address] Flores, HTN, hyperlipidemia, and tobacco use. - He presented to the ED at [facility] [place] on 03/30/17 with complaints of right calf pain and right foot coolness that began about 2-3 days ago. - Pts RLE and foot were noticibly cooler than his left on examination. They were unable to get pulses in the right foot on Dopplar - LE US performed in the ED revealed a thrombus in the femoral bypass graft, there was no evidence of DVT. - Dr. Flores was contacted from the ED and he recommended IR evaluation for possible thrombolysis. - CTA with runoff --> Acute thrombosis of the femoropopliteal bypass on the right. Thrombus extends throughout the bypass and into the [place] ewvbe-hom-gtyv popliteal artery. The right inflow is patent. Poor evaluation the outflow with no named vessel observed across the ankle joint. Left inflow is patent. - IR evaluated the pt and he was started on TPA thrombolytic therapy on 03/30/17 and is to have repeat evaluation with angiogram by IR today - Pt is on Heparin gtt per protocol - Pain control PRN - Supportive care - Further recommendations as the case develops (2) HTN (hypertension) ICD Codes: I10 - Essential (primary) hypertension Status: Chronic Plan: - Home meds resumed except HCTZ - Monitor - Vasotec and Clonidine PRN (3) PVD (peripheral vascular disease) ICD Codes: I73.9 - Peripheral vascular disease, unspecified Status: Chronic Plan: - See above - Pt has previously underwent Fem-Pop bypass in 01/[address] Flores and arthrectomy of right popliteal artery in 01/2008 (4) Hypothyroidism ICD Codes: E03.9 - Hypothyroidism, unspecified Status: Chronic Plan: - Home meds resumed Assessment and Plan Patient examined. Assessment and plan formulated with Josselin Goncalves PA-C. I agree with the above. Josselin Goncalves Mar 31, 2017 10:58 Hill Miles DO Apr 02, 2017 13:56
[2017-03-31] MEDS: ACETAMINOPHEN/HYDROcodone 325 MG/7.5 MG TAB PO PRN ×3 (11:33→20:12)
[2017-03-31] MEDS ORDERED: MIDAZOLAM HCL 2 MG/2 ML VIAL ONE (12:46)
--- NOTE | 2017-03-31 13:29 | PD.RAD ---
Post Procedure Progress Note Pre Procedure Diagnosis: (1) Arterial occlusion, lower extremity Post Procedure Diagnosis: (1) Arterial occlusion, lower extremity Procedure Date: Mar 31, 2017 Supervising Radiologist: Juan Austin JR Proceduralist/Assist: Neal Clancy, RT(R), Vidya Roa RT(R) Anesthesia: Conscious Sedation Plan of Activity Patient to Unit: Critical Care Patient Condition: Fair See PACS Report for procedural detail/treatment Vascular-Arterial Procedure Procedure 1 Procedure Site: Right Leg Procedure(s): Angiogram, Thrombolysis Access Access Site(s): Left Femoral Artery Sheath(s) Remaining: Left Femoral Artery Findings: s/p 23 hrs catheter directed thrombolysis of right fem-pop. Successful thrombolysis of bypass and eek popliteal artery. Runoff remains very poor. No named vessel below distal calf. The AT is patent to the distal calf. Peroneal and PT occluded. Placed catheter tip at below knee pop. Resume TPA at 0.5mg/hr. Fibrinogen approx 200.Placed cerclage suture around access site to try to reduce bleeding form groin. Return tomorrow morning for f/u angio. Plan See above Jr. Norman,Juan Shankar MD Mar 31, 2017 13:29
[2017-03-31] MEDS ORDERED: IODIXANOL 320 MG/ML 50 ML VIAL (for RAD SPEC) I-ARTERIAL ONE (14:10)
--- NOTE | 2017-03-31 16:42 | RADRPT ---
EXAM DATE/TIME: 03/31/2017 14:04 [facility] COMPARISON: ANGIOGRAM, RIGHT LEG, February 10, 2008, 9:36. INDICATIONS : Patient is status post 23 hours of catheter directed thrombolytic therapy into the right lower extrem ity. Clinically the patient's foot is much warmer but there remains a dusky appearance particularly i nvolving the plantar surface and the toes. No dopplerable pulses. Sensory and motor function remain i ntact. MEDICAL HISTORY : HTN Hyperlipdemia Hypertensive CKD, stage 2 Hypothyroidism PVD Vitamin D deficiency Diverticulosis CAD SURGICAL HISTORY : Fempop bypass in 01/2007 Artherectomy of right popliteal artery in 01/2008 Tonsillectomy ENCOUNTER: Subsequent ACUITY: 1 day PAIN SCORE: 0/10 LOCATION: N/A FLUORO TIME: 1.6 minutes IMAGE SERIES: 5 SEDATION TIME: 30 minutes CONTRAST: 1.) 25 cc Visipaque (iodixanol) MEDICATION(S): 1.) 1 mg midazolam (Versed) IV 2.) 100 mcg fentanyl (Sublimaze) IV DEVICE(S): 1.) Right tibioperoneal trunk artery 4fr 120cm straight glidecath PROCEDURE: 1. Followup thrombolysis 2. Conscious sedation with continuous EKG and oximetry monitoring. Following TPA infusion the patient returned to the angiography suite for reevaluation. Angiography of the right lower extremity was performed through the sheath. These images show interval successful thrombolysis of the common femoral artery to above-knee popliteal artery bypass. The [place] ve SFA remains occluded. The distal anastomosis is patent. Multiple moderate tandem stenoses involvin g the patient's [place] mlveo-uqm-hruj popliteal artery are seen which are new from the prior exam of 2007. The patient's most significant disease involves the trifurcation vessels. There is complete occ lusion of the peroneal artery and posterior tibial artery proximally within the calf. The anterior ti bial artery is patent proximally but occludes at the distal calf. No named vessel is seen crossing th e ankle joint. The distal anterior tibial disease is a new finding from the prior study. The peroneal and posterior tibial disease are similar to the prior exam. It was felt prudent to continue thrombol ytic therapy to try and open up the distal anterior tibial artery and dorsalis pedis artery. An endho le catheter was positioned in the tibioperoneal trunk to better bathe the trifurcation vessels in the TPA. A cerclage stitch was placed at the left groin sheath insertion site to try an aid in hemostasi s. The patient tolerated the procedure well and there were no complications. Conscious sedation was perf ormed with the prescribed dosages and duration as above in the presence of an independent trained rad iology nurse to assist in the monitoring of the patient. EKG and oximetry remained stable throughout the procedure. CONCLUSION: Clearance of the thrombus throughout the bypass. There is horrible trifurcation disease with a solita ry anterior tibial artery patent to the point of the distal calf but no named vessel distal to this. The patient has severe trifurcation disease as evidenced on the 2007 exam but the anterior tibial art zoraida distal disease is new from that study. I'll continue lysis overnight to try and open up the dista l anterior tibial artery and dorsalis pedis artery. The patient will return tomorrow morning for foll owup. I've spoken to Dr. Flores. Juan Austin Jr., MD on March 31, 2017 at 16:26 Board Certified Radiologist. This report was verified electronically.
[2017-03-31 19:44] LABS: AUTOMATED NEUTROPHIL # 6.8 TH/MM3 (1.8-7.7); BASOPHIL # 0.1 TH/MM3 (0-0.2); BASOPHIL % 0.8 % (0.0-2.0); EOSINOPHIL # 0.1 TH/MM3 (0-0.4); EOSINOPHIL % 1.4 % (0.0-4.0); HEMATOCRIT 34.3 % (39.0-51.0); HEMOGLOBIN 11.8 GM/DL (13.0-17.0); LYMPH % 11.7 % (9.0-44.0); LYMPHOCYTE # 1.1 TH/MM3 (1.0-4.8); MEAN CELL VOLUME 90.5 FL (80.0-100.0); MEAN CORPUSCULAR HEMOGLOBIN 31.3 PG (27.0-34.0); MEAN CORPUSCULAR HGB CONC 34.5 % (32.0-36.0); MEAN PLATELET VOLUME 7.2 FL (7.0-11.0); NEUT % 75.1 % (16.0-70.0); PLATELET COUNT 217 TH/MM3 (150-450); RED BLOOD COUNT 3.79 MIL/MM3 (4.50-5.90); RED CELL DISTRIBUTION WIDTH 13.5 % (11.6-17.2)
[2017-04-01] VITALS (33 sets, daily range): BP systolic 122–171; BP diastolic 57–79; PULSE 60–97; RESP 14–22; TEMP 98–99.8; O2SAT 91–98
[2017-04-01] MEDS: HYDROmorphone HCL PF 2 MG/ML VIAL IV PRN ×2 (00:53→06:42)
[2017-04-01] MEDS: CHLORHEXIDINE GLUCONATE 2 % 1 PACK (2 CLOTHS)(taper/protocol) TOPICAL SCH ×2 (05:19→05:28)
[2017-04-01] MEDS: LEVOTHYROXINE SODIUM 125 MCG TAB PO SCH (05:19)
[2017-04-01] MEDS: ACETAMINOPHEN/HYDROcodone 325 MG/7.5 MG TAB PO PRN (06:45)
[2017-04-01] MEDS: ATORVASTATIN 40 MG TAB PO SCH (07:52)
[2017-04-01] MEDS: LISINOPRIL 10 MG TAB PO SCH (07:53)
[2017-04-01] MEDS: NS + KCL 20 MEQ INJ 1,000 ML IV SCH ×2 (10:46→22:27)
[2017-04-01] MEDS ORDERED: MIDAZOLAM HCL 2 MG/2 ML VIAL ONE (13:31)
[2017-04-01] MEDS ORDERED: ceFAZolin 2 GM PREMIX 50 ML ONE (14:03)
[2017-04-01] MEDS ORDERED: HEPARIN SODIUM - IV 10,000 UNITS/10 ML VIAL ONE (14:24)
--- NOTE | 2017-04-01 14:25 | PD.RAD ---
Post Procedure Progress Note Pre Procedure Diagnosis: (1) Arterial occlusion, lower extremity Post Procedure Diagnosis: (1) Arterial occlusion, lower extremity Procedure Date: Apr 01, 2017 Supervising Radiologist: Juan Austin JR Proceduralist/Assist: Shannan Cannon, RT(R), Amber Harkins, RT(R)(CV) Anesthesia: Conscious Sedation Plan of Activity Patient to Unit: Critical Care Patient Condition: Good See PACS Report for procedural detail/treatment Vascular-Arterial Procedure Procedure 1 Procedure Site: Right Leg Procedure(s): Angiogram, Thrombolysis Access Access Site(s): Left Femoral Artery Closure Site(s): Left vascular closure device Findings: Clinically somewhat improved from yesterday. Still dusky appearance of right foot. Right LE angio shows no real change from yesterday. Issue is severe trifurcation disease with occlusion of all three vessels. No named vessel across the ankle joint. Spoke with Dr Flores. Plan D/C TPA. Resume Heparin. Jr. Norman,Juan Shankar MD Apr 01, 2017 14:25
[2017-04-01] MEDS ORDERED: IODIXANOL 320 MG/ML 50 ML VIAL (for RAD SPEC) I-ARTERIAL ONE (14:44)
--- NOTE | 2017-04-01 15:32 | RADRPT ---
EXAM DATE/TIME: 04/01/2017 14:47 [facility] COMPARISON: F/U THRU EXISTING CATHETER, March 31, 2017, 14:04. INDICATIONS : Patient with some improvement clinically. Pain in the foot has decreased somewhat. There is a duskine ss to the foot particularly on the plantar aspects as well as all digits. There is a dopplerable puls e involving the forefoot along dorsum. The patient is status post 48 hours of catheter directed throm bolytic therapy. MEDICAL HISTORY : HTN Hyperlipidemia Hypertensive CKD, stage 2 Hypothyroidism PVD Vitamin D deficiency Diverticulosis CAD SURGICAL HISTORY : Fempop bypass Artherectomy of right popliteal artery Tonsillectomy ENCOUNTER: Subsequent ACUITY: 2 days PAIN SCORE: 0/10 LOCATION: N/A FLUORO TIME: 1.2 minutes IMAGE SERIES: 4 SEDATION TIME: 30 minutes CONTRAST: 1.) 35 cc Visipaque (iodixanol) MEDICATION(S): 1.) 2 mg midazolam (Versed) IV 2.) 100 mcg fentanyl (Sublimaze) IV DEVICE(S): 1.) Angio-Seal closure device PROCEDURE: F/U THRU EXISTING CATHETER 1. Followup thrombolysis 2. Angio-Seal closure device 3. <Angiography of the access site 5. Conscious sedation with continuous EKG and oximetry monitoring. Following TPA infusion the patient returned to the angiography suite for evaluation. Followup angiography of the right lower extremity was performed through the sheath. These diagnostic images are compared to the prior exam performed yesterday. There has been no change angiographically. Again seen is patency of the femoropopliteal bypass. Moderate tandem stenoses are seen within the na tive artery inferior to the distal anastomosis. These are not flow-limiting. The patient's main disea se involves the trifurcation vessels. The anterior tibial artery occludes within the distal calf. The re is opacification of a small collateral vessel of all the dorsum of the foot this is not felt to re late to the dorsalis pedis artery. There is no reconstitution of the distal anterior tibial artery. T he posterior tibial artery is chronically occluded within the proximal calf. Peroneal artery is chron ically occluded at its origin. Angiography of the common femoral artery was performed for evaluation prior to percutaneous closure d evice placement. The puncture site was closed with the prescribed closure device. The patient tolera yadi the procedure well and there were no complications. Conscious sedation was performed with the prescribed dosages and duration as above in the presence of an independent trained radiology nurse to assist in the monitoring of the patient. EKG and oximetry remained stable throughout the procedure. CONCLUSION: No change angiographically from the prior exam. The patient's issue remains severe trifurcation disea se with no named vessel crossing the ankle joint. Although the bypass is patent currently it's long-t erm patency is in question given the poor outflow from the bypass. The patient does have [place] below -knee popliteal artery disease this is not significantly flow limiting and is not contributing to the patient's clinical picture. Catheter directed thrombolysis was terminated. The patient was placed ba ck on heparin. I spoke with Dr. Flores following the procedure. Juan Austin Jr., MD on April 01, 2017 at 15:19 Board Certified Radiologist. This report was verified electronically.
[2017-04-01] MEDS ORDERED: HEPARIN-D5W 25,000 U/250 ML 250 ML IV SCH (15:37)
[2017-04-01] MEDS ORDERED: HEPARIN SODIUM - IV 10,000 UNITS/10 ML VIAL IV ONE ×2 (15:45)
--- NOTE | 2017-04-01 17:07 | HHI.PR ---
Subjective Remarks Pt with improved pain at RLE Objective Vitals Vital Signs Date Time Temp Pulse Resp B/P (MAP) Pulse Ox O2 Delivery O2 Flow Rate FiO2 04/01/17 16:00 75 04/01/17 14:00 78 04/01/17 12:00 75 04/01/17 12:00 75 20 147/70 (95) 95 04/01/17 11:30 73 18 147/68 (94) 96 04/01/17 11:00 76 20 139/64 (89) 97 04/01/17 10:30 83 18 133/60 (84) 98 04/01/17 10:00 69 14 141/71 (94) 96 04/01/17 10:00 83 04/01/17 09:30 64 16 95 131/59 (83) 04/01/17 08:30 60 20 132/57 (82) 97 04/01/17 08:00 99.8 66 18 140/64 (89) 96 140/61 (87) 04/01/17 08:00 78 04/01/17 07:45 12 04/01/17 07:12 16 04/01/17 07:00 67 18 135/58 (83) 96 04/01/17 06:00 78 04/01/17 05:30 83 22 162/69 (100) 95 04/01/17 05:29 98.0 83 18 167/74 (105) 04/01/17 05:00 68 19 138/59 (85) 97 04/01/17 04:30 63 14 131/57 (81) 95 04/01/17 04:00 76 04/01/17 04:00 71 18 122/68 (86) 96 140/60 (86) 04/01/17 03:30 66 14 135/58 (83) 94 04/01/17 03:00 73 19 149/64 (92) 94 04/01/17 02:30 71 14 140/61 (87) 94 04/01/17 02:00 70 17 139/60 (86) 93 04/01/17 02:00 77 04/01/17 01:30 85 22 155/66 (95) 93 04/01/17 01:00 72 16 146/60 (88) 93 04/01/17 00:30 65 18 134/57 (82) 95 04/01/17 00:00 97 04/01/17 00:00 98.0 71 18 137/59 (85) 95 03/31/17 23:30 70 20 133/58 (83) 94 03/31/17 23:00 70 23 134/59 (84) 94 03/31/17 22:30 67 19 123/53 (76) 94 03/31/17 22:00 72 21 127/56 (79) 95 03/31/17 22:00 66 03/31/17 21:30 62 16 122/53 (76) 94 03/31/17 21:00 66 17 126/55 (78) 94 03/31/17 20:30 81 26 151/66 (94) 93 03/31/17 20:11 73 22 128/72 (90) 94 140/61 (87) 03/31/17 20:00 98.2 68 23 137/59 (85) 95 03/31/17 20:00 68 03/31/17 18:00 69 03/31/17 18:00 73 Result Diagram: 03/31/17 1900 03/31/17 0400 Imaging Last Impressions Lower Extremity Ultrasound 03/30/17 0812 Signed Impressions: Service Date/Time: Thursday, March 30, 2017 08:28 - CONCLUSION: 1. No DVT right leg. 2. The femoral bypass graft appears occluded. Heber Valenzuela MD Therapeutic Infusion 03/30/17 0000 Signed Impressions: Service Date/Time: Thursday, March 30, 2017 14:47 - CONCLUSION: Uncomplicated initiation of thrombolytic therapy as above. The patient has limb threatening ischemia of the right foot with preserved sensory and motor function. There is acute occlusion of the femoropopliteal bypass as well as the distal trifurcation vessels. No named vessel is seen crossing the ankle joint. The patient will return tomorrow for followup angiogram. Juan Austin Jr., MD Aorta w/Runoff CTA 03/30/17 0000 Signed Impressions: Service Date/Time: Thursday, March 30, 2017 11:15 - CONCLUSION: 1. Acute thrombosis of the femoropopliteal bypass on the right. Thrombus extends throughout the bypass and into the [place] asqqt-fuw-mamg popliteal artery. The right inflow is patent. Poor evaluation the outflow with no named vessel observed across the ankle joint. 2. Left inflow is patent. Outflow is via the anterior tibial artery. 3. Hepatic steatosis. 4. Colonic diverticulosis. Juan Austin Jr., MD Last Impressions Lower Extremity Ultrasound 03/30/17 0812 Signed Impressions: Service Date/Time: Thursday, March 30, 2017 08:28 - CONCLUSION: 1. No DVT right leg. 2. The femoral bypass graft appears occluded. Heber Valenzuela MD Objective Remarks General: NAD, AAOx3 Chest: CTA Cardiac: Regular Abd: +BS, soft ND/NT Ext: Right foot is slightly warmer than at admission, no palpable pulses in the right foot, some mottling and darkened areas on the toes A/P Problem List: (1) Arterial occlusion, lower extremity ICD Codes: I70.209 - Unspecified atherosclerosis of [place] arteries of extremities, unspecified extremity Status: Acute Plan: - Pt is a 67 y/o WM with PVD s/p right fem[place]pop [place] [address] [place], HTN, hyperlipidemia, and tobacco use. - [place] [facility] [place] with complaints of right calf pain and right foot coolness that began about 2-3 days ago. - Pts RLE and foot were noticibly cooler than his left on examination. They were unable to get pulses in the right foot on Dopplar - LE US performed in the ED revealed a thrombus in the femoral bypass graft, there was no evidence of DVT. - Dr. Flores was contacted from the ED and he recommended IR evaluation for possible thrombolysis. - CTA with runoff --> Acute thrombosis of the femoropopliteal bypass on the right. Thrombus extends throughout the bypass and into the [place] phhbt-sfc-zefy popliteal artery. The right inflow is patent. Poor evaluation the outflow with no named vessel observed across the ankle joint. Left inflow is patent. - case d/w Dr. Austin (04/01) - No angiographic improvement of pt's right leg following, TPA - continue heparin - Dr. Flores to consult - pt continues with threatening right limb ischemia - Case d/w pt and his at the bedside (04/01) to the best of my abilities. - Pain control PRN - Supportive care - Further recommendations as the case develops (2) HTN (hypertension) ICD Codes: I10 - Essential (primary) hypertension Status: Chronic Plan: - Home meds resumed except HCTZ - Monitor - Vasotec and Clonidine PRN (3) PVD (peripheral vascular disease) ICD Codes: I73.9 - Peripheral vascular disease, unspecified Status: Chronic Plan: - See above - Pt has previously underwent Fem-Pop bypass in 01/[address] Flores and arthrectomy of right popliteal artery in 01/2008 (4) Hypothyroidism ICD Codes: E03.9 - Hypothyroidism, unspecified Status: Chronic Plan: - Home meds resumed Hill Miles DO Apr 01, 2017 17:07
[2017-04-01] MEDS ORDERED: HEPARIN 25,000 UNITS-D5W 250 ML - PREMIX IV PRN (17:30)
[2017-04-01] MEDS ORDERED: HEPARIN SODIUM - IV 10,000 UNITS/10 ML VIAL IV PUSH PRN ×2 (17:30)
[2017-04-01 21:31] LABS: HEMATOCRIT 35.3 % (39.0-51.0); MEAN CELL VOLUME 90.1 FL (80.0-100.0); MEAN CORPUSCULAR HEMOGLOBIN 30.7 PG (27.0-34.0); MEAN PLATELET VOLUME 7.1 FL (7.0-11.0); PLATELET COUNT 228 TH/MM3 (150-450); RED BLOOD COUNT 3.91 MIL/MM3 (4.50-5.90); RED CELL DISTRIBUTION WIDTH 13.3 % (11.6-17.2); WHITE BLOOD COUNT 10.7 TH/MM3 (4.0-11.0)
[2017-04-01 21:43] LABS: PROTHROMBIN TIME - PATIENT 10.2 SEC (9.8-11.6)
[2017-04-02] VITALS (9 sets, daily range): BP systolic 113–148; BP diastolic 53–100; PULSE 72–94; RESP 16–25; TEMP 98.1–99.2; O2SAT 92–95
[2017-04-02] MEDS: CHLORHEXIDINE GLUCONATE 2 % 1 PACK (2 CLOTHS)(taper/protocol) TOPICAL SCH (03:52)
[2017-04-02 04:08] LABS: HEMATOCRIT 33.9 % (39.0-51.0); HEMOGLOBIN 11.5 GM/DL (13.0-17.0); MEAN CELL VOLUME 89.7 FL (80.0-100.0); MEAN CORPUSCULAR HEMOGLOBIN 30.4 PG (27.0-34.0); MEAN CORPUSCULAR HGB CONC 33.9 % (32.0-36.0); MEAN PLATELET VOLUME 7.3 FL (7.0-11.0); PLATELET COUNT 229 TH/MM3 (150-450); RED BLOOD COUNT 3.78 MIL/MM3 (4.50-5.90); RED CELL DISTRIBUTION WIDTH 13.2 % (11.6-17.2); WHITE BLOOD COUNT 10.7 TH/MM3 (4.0-11.0)
[2017-04-02] MEDS: LEVOTHYROXINE SODIUM 125 MCG TAB PO SCH (06:23)
[2017-04-02] MEDS: ATORVASTATIN 40 MG TAB PO SCH (08:51)
[2017-04-02] MEDS: LISINOPRIL 10 MG TAB PO SCH (08:51)
[2017-04-02] MEDS: NS + KCL 20 MEQ INJ 1,000 ML IV SCH ×2 (08:51→20:19)
--- NOTE | 2017-04-02 10:09 | HHI.PR ---
Subjective Remarks Patient reports no pain in left foot positive doppler pulses left foot, unable to palpate pulses left foot no other complaints Objective Vitals Vital Signs Date Time Temp Pulse Resp B/P (MAP) Pulse Ox O2 Delivery O2 Flow Rate FiO2 04/02/17 08:00 98.1 84 20 113/53 (73) 92 04/02/17 08:00 83 04/02/17 06:00 72 04/02/17 04:00 98.6 86 22 143/100 (114) 92 04/02/17 04:00 86 04/02/17 02:00 76 04/02/17 00:00 98.6 79 21 133/65 (87) 93 04/02/17 00:00 79 04/01/17 22:00 91 04/01/17 20:00 84 04/01/17 20:00 98.6 84 22 147/71 (96) 91 04/01/17 19:00 88 18 135/79 (97) 91 04/01/17 18:00 89 04/01/17 18:00 98.8 89 16 154/73 (100) 95 04/01/17 17:00 93 18 135/71 (92) 92 04/01/17 16:30 83 16 171/77 (108) 95 Arterial Line 04/01/17 16:00 75 20 151/74 (99) 96 Arterial Line 04/01/17 16:00 75 04/01/17 14:00 78 04/01/17 13:00 71 18 153/66 (95) 96 04/01/17 12:30 75 20 147/70 (95) 95 04/01/17 12:00 75 04/01/17 12:00 75 20 147/70 (95) 95 04/01/17 11:30 73 18 147/68 (94) 96 04/01/17 11:00 76 20 139/64 (89) 97 04/01/17 10:30 83 18 133/60 (84) 98 Result Diagram: 04/02/17 0330 03/31/17 0400 Other Results Laboratory Tests Test 03/30/17 16:20 03/30/17 17:13 03/30/17 21:35 03/31/17 04:00 Nasal Screen MRSA (PCR) MRSA NOT DETECTED White Blood Count 10.7 TH/MM3 13.4 TH/MM3 9.0 TH/MM3 Red Blood Count 4.87 MIL/MM3 4.73 MIL/MM3 4.35 MIL/MM3 Hemoglobin 15.1 GM/DL 14.5 GM/DL 13.5 GM/DL Hematocrit 43.7 % 42.4 % 38.8 % Mean Corpuscular Volume 89.8 FL 89.7 FL 89.2 FL Mean Corpuscular Hemoglobin 31.0 PG 30.6 PG 31.0 PG Mean Corpuscular Hemoglobin Concent 34.5 % 34.1 % 34.7 % Red Cell Distribution Width 13.5 % 13.3 % 13.6 % Platelet Count 309 TH/MM3 242 TH/MM3 239 TH/MM3 Mean Platelet Volume 7.6 FL 7.2 FL 7.0 FL Activated Partial Thromboplast Time 40.8 SEC 35.9 SEC 32.4 SEC Fibrinogen 361 mg/dL 201 mg/dL 214 mg/dL Neutrophils (%) (Auto) 85.4 % 76.0 % Lymphocytes (%) (Auto) 4.9 % 13.2 % Monocytes (%) (Auto) 8.4 % 9.4 % Eosinophils (%) (Auto) 0.6 % 0.8 % Basophils (%) (Auto) 0.7 % 0.6 % Neutrophils # (Auto) 11.4 TH/MM3 6.8 TH/MM3 Lymphocytes # (Auto) 0.7 TH/MM3 1.2 TH/MM3 Monocytes # (Auto) 1.1 TH/MM3 0.8 TH/MM3 Eosinophils # (Auto) 0.1 TH/MM3 0.1 TH/MM3 Basophils # (Auto) 0.1 TH/MM3 0.1 TH/MM3 CBC Comment DIFF FINAL DIFF FINAL Differential Comment Blood Urea Nitrogen 9 MG/DL Creatinine 0.85 MG/DL Random Glucose 113 MG/DL Calcium Level 7.6 MG/DL Magnesium Level 2.2 MG/DL Sodium Level 137 MEQ/L Potassium Level 4.0 MEQ/L Chloride Level 104 MEQ/L Carbon Dioxide Level 26.6 MEQ/L Anion Gap 6 MEQ/L Estimat Glomerular Filtration Rate 89 ML/MIN Test 03/31/17 09:50 03/31/17 19:00 04/01/17 21:19 04/02/17 03:30 White Blood Count 8.9 TH/MM3 9.0 TH/MM3 10.7 TH/MM3 10.7 TH/MM3 Red Blood Count 4.10 MIL/MM3 3.79 MIL/MM3 3.91 MIL/MM3 3.78 MIL/MM3 Hemoglobin 12.9 GM/DL 11.8 GM/DL 12.0 GM/DL 11.5 GM/DL Hematocrit 36.9 % 34.3 % 35.3 % 33.9 % Mean Corpuscular Volume 90.1 FL 90.5 FL 90.1 FL 89.7 FL Mean Corpuscular Hemoglobin 31.5 PG 31.3 PG 30.7 PG 30.4 PG Mean Corpuscular Hemoglobin Concent 34.9 % 34.5 % 34.0 % 33.9 % Red Cell Distribution Width 13.3 % 13.5 % 13.3 % 13.2 % Platelet Count 223 TH/MM3 217 TH/MM3 228 TH/MM3 229 TH/MM3 Mean Platelet Volume 7.4 FL 7.2 FL 7.1 FL 7.3 FL Neutrophils (%) (Auto) 74.6 % 75.1 % Lymphocytes (%) (Auto) 12.9 % 11.7 % Monocytes (%) (Auto) 10.8 % 11.0 % Eosinophils (%) (Auto) 1.1 % 1.4 % Basophils (%) (Auto) 0.6 % 0.8 % Neutrophils # (Auto) 6.6 TH/MM3 6.8 TH/MM3 Lymphocytes # (Auto) 1.1 TH/MM3 1.1 TH/MM3 Monocytes # (Auto) 1.0 TH/MM3 1.0 TH/MM3 Eosinophils # (Auto) 0.1 TH/MM3 0.1 TH/MM3 Basophils # (Auto) 0.1 TH/MM3 0.1 TH/MM3 CBC Comment DIFF FINAL DIFF FINAL Differential Comment Activated Partial Thromboplast Time 34.5 SEC 48.2 SEC 34.2 SEC 50.2 SEC Fibrinogen 203 mg/dL 198 mg/dL Prothrombin Time 10.2 SEC Prothromb Time International Ratio 1.0 RATIO Imaging Last Impressions Lower Extremity Ultrasound 03/30/17 0812 Signed Impressions: Service Date/Time: Thursday, March 30, 2017 08:28 - CONCLUSION: 1. No DVT right leg. 2. The femoral bypass graft appears occluded. Heber Valenzuela MD Therapeutic Infusion 03/30/17 0000 Signed Impressions: Service Date/Time: Thursday, March 30, 2017 14:47 - CONCLUSION: Uncomplicated initiation of thrombolytic therapy as above. The patient has limb threatening ischemia of the right foot with preserved sensory and motor function. There is acute occlusion of the femoropopliteal bypass as well as the distal trifurcation vessels. No named vessel is seen crossing the ankle joint. The patient will return tomorrow for followup angiogram. Juan Austin Jr., MD Aorta w/Runoff CTA 03/30/17 0000 Signed Impressions: Service Date/Time: Thursday, March 30, 2017 11:15 - CONCLUSION: 1. Acute thrombosis of the femoropopliteal bypass on the right. Thrombus extends throughout the bypass and into the [place] jobpr-qfx-ockq popliteal artery. The right inflow is patent. Poor evaluation the outflow with no named vessel observed across the ankle joint. 2. Left inflow is patent. Outflow is via the anterior tibial artery. 3. Hepatic steatosis. 4. Colonic diverticulosis. Juan Austin Jr., MD Last Impressions Lower Extremity Ultrasound 03/30/17 0812 Signed Impressions: Service Date/Time: Thursday, March 30, 2017 08:28 - CONCLUSION: 1. No DVT right leg. 2. The femoral bypass graft appears occluded. Heber Valenzuela MD Objective Remarks General: NAD, AAOx3 Chest: CTA Cardiac: Regular Abd: +BS, soft ND/NT Ext: Right foot is slightly warmer than at admission, no palpable pulses in the right foot, some mottling and darkened areas on the toes A/P Problem List: (1) Arterial occlusion, lower extremity ICD Codes: I70.209 - Unspecified atherosclerosis of [place] arteries of extremities, unspecified extremity Status: Acute Plan: - Pt is a 67 y/o WM with PVD s/p right fem-pop [place] [address] Flores, HTN, hyperlipidemia, and tobacco use. - He presented to the ED at [facility] [place] on 03/30/17 with complaints of right calf pain and right foot coolness that began about 2-3 days ago. - Pts RLE and foot were noticibly cooler than his left on examination. They were unable to get pulses in the right foot on Dopplar - LE US performed in the ED revealed a thrombus in the femoral bypass graft, there was no evidence of DVT. - Dr. Flores was contacted from the ED and he recommended IR evaluation for possible thrombolysis. - CTA with runoff --> Acute thrombosis of the femoropopliteal bypass on the right. Thrombus extends throughout the bypass and into the [place] rjeft-sco-loxr popliteal artery. The right inflow is patent. Poor evaluation the outflow with no named vessel observed across the ankle joint. Left inflow is patent. - case d/w Dr. Austin (04/01) - No angiographic improvement of pt's right leg following, TPA - continue heparin - Dr. Flores to consult, awaiting input per Dr. Flores - pt continues with threatening right limb ischemia - Case d/w pt and his at the bedside (04/01) to the best of my abilities. - Pain control PRN - Supportive care - Further recommendations as the case develops 04/02 Dr. Miles discussed the case with Dr. Flores who recommends DC Heparin drip start Xarelto. Will transfer out of ICU and possible DC tomorrow (2) HTN (hypertension) ICD Codes: I10 - Essential (primary) hypertension Status: Chronic Plan: - Home meds resumed except HCTZ - Monitor - Vasotec and Clonidine PRN (3) PVD (peripheral vascular disease) ICD Codes: I73.9 - Peripheral vascular disease, unspecified Status: Chronic Plan: - See above - Pt has previously underwent Fem-Pop bypass in 01/[address] Flores and arthrectomy of right popliteal artery in 01/2008 (4) Hypothyroidism ICD Codes: E03.9 - Hypothyroidism, unspecified Status: Chronic Plan: - Home meds resumed Assessment and Plan Patient examined. Assessment and plan formulated with Sarahy Ureña PA-C. I agree with the above. - Case d/w Dr. Flores - Pt's right foot is now pain free and warmer - stop heparin - start xarelto - transfer out of ICU - if pt remains stable, then will d/c to home 04/03/17 Sarahy Ureña Apr 02, 2017 10:09 Hill Miles DO Apr 02, 2017 13:58
[2017-04-02] MEDS ORDERED: XARE20TA PO (11:11)
--- NOTE | 2017-04-02 11:19 | HHI.DS ---
Discharge Summary Admission Date Mar 30, 2017 at 10:23 Discharge Date: Apr 03, 2017 Admitting Diagnosis arterial occlusion (1) Arterial occlusion, lower extremity ICD Codes: I70.209 - Unspecified atherosclerosis of [place] arteries of extremities, unspecified extremity Status: Acute (2) HTN (hypertension) ICD Codes: I10 - Essential (primary) hypertension Status: Chronic (3) PVD (peripheral vascular disease) ICD Codes: I73.9 - Peripheral vascular disease, unspecified Status: Chronic (4) Hypothyroidism ICD Codes: E03.9 - Hypothyroidism, unspecified Status: Chronic Consultants Dr. Austin, IR Dr. Flores, vascular surgery Procedures right fem-pop bypass [place] [address] Flores CTA with runoff (03/30) --> Acute thrombosis of the femoropopliteal bypass on the right. Thrombus extends throughout the bypass and into the [place] gmykf-ego-horn popliteal artery. The right inflow is patent. Poor evaluation the outflow with no named vessel observed across the ankle joint. Left inflow is patent. (03/31) Angiogram, follow up thrombolysis with Dr. Austin (04/01) Angiography, follow up angiogram with Dr. Austin Brief History Mr. Miller is a pleasant 67 y/o WM with PVD s/p right fem-pop bypass [place] [address] Flores, HTN, hyperlipidemia, and tobacco use. He presented to the ED at [facility] [place] on 03/30/17 with complaints of right calf pain and right foot coolness that began about 2-3 days ago. He states that he started noticing some cramping pain in the right calf Joby night, with residual pain into the right medial thigh since that time. He was recently scheduled to see Dr. Flores in follow-up on February 25 but did not have his vascular scan done prior to his visit so this was rescheduled. Patient states the pain is worse at night when he and when he first gets up. They were unable to get pulses in the right foot on Dopplar so LE US performed in the ED revealed a thrombus in the femoral bypass graft, there was no evidence of DVT. Dr. Flores was contacted from the ED and he recommended IR evaluation for possible thrombolysis. Pt has been started on a heparin gtt. CBC/BMP: 04/02/17 0330 03/31/17 0400 Significant Findings Laboratory Tests Test 03/30/17 16:20 03/30/17 17:13 03/30/17 21:35 03/31/17 04:00 Activated Partial Thromboplast Time 40.8 SEC (24.3-30.1) 35.9 SEC (24.3-30.1) 32.4 SEC (24.3-30.1) White Blood Count 13.4 TH/MM3 (4.0-11.0) Neutrophils (%) (Auto) 85.4 % (16.0-70.0) 76.0 % (16.0-70.0) Lymphocytes (%) (Auto) 4.9 % (9.0-44.0) Monocytes (%) (Auto) 8.4 % (0.0-8.0) 9.4 % (0.0-8.0) Neutrophils # (Auto) 11.4 TH/MM3 (1.8-7.7) Lymphocytes # (Auto) 0.7 TH/MM3 (1.0-4.8) Monocytes # (Auto) 1.1 TH/MM3 (0-0.9) Fibrinogen 201 mg/dL (227-377) 214 mg/dL (227-377) Red Blood Count 4.35 MIL/MM3 (4.50-5.90) Hematocrit 38.8 % (39.0-51.0) Random Glucose 113 MG/DL (74-106) Calcium Level 7.6 MG/DL (8.5-10.1) Test 03/31/17 09:50 03/31/17 19:00 04/01/17 21:19 04/02/17 03:30 Red Blood Count 4.10 MIL/MM3 (4.50-5.90) 3.79 MIL/MM3 (4.50-5.90) 3.91 MIL/MM3 (4.50-5.90) 3.78 MIL/MM3 (4.50-5.90) Hemoglobin 12.9 GM/DL (13.0-17.0) 11.8 GM/DL (13.0-17.0) 12.0 GM/DL (13.0-17.0) 11.5 GM/DL (13.0-17.0) Hematocrit 36.9 % (39.0-51.0) 34.3 % (39.0-51.0) 35.3 % (39.0-51.0) 33.9 % (39.0-51.0) Neutrophils (%) (Auto) 74.6 % (16.0-70.0) 75.1 % (16.0-70.0) Monocytes (%) (Auto) 10.8 % (0.0-8.0) 11.0 % (0.0-8.0) Monocytes # (Auto) 1.0 TH/MM3 (0-0.9) 1.0 TH/MM3 (0-0.9) Activated Partial Thromboplast Time 34.5 SEC (24.3-30.1) 48.2 SEC (24.3-30.1) 34.2 SEC (24.3-30.1) 50.2 SEC (24.3-30.1) Fibrinogen 203 mg/dL (227-377) 198 mg/dL (227-377) Imaging Last Impressions Miscellaneous Special Procedure 04/01/17 0000 Signed Impressions: Service Date/Time: Saturday, April 01, 2017 14:47 - CONCLUSION: No change angiographically from the prior exam. The patient's issue remains severe trifurcation disease with no named vessel crossing the ankle joint. Although the bypass is patent currently it's long-term patency is in question given the poor outflow from the bypass. The patient does have [place] below-knee popliteal artery disease this is not significantly flow limiting and is not contributing to the patient's clinical picture. Catheter directed thrombolysis was terminated. The patient was placed back on heparin. I spoke with Dr. Flores following the procedure. Juan Austin Jr., MD Lower Extremity Ultrasound 03/30/17 0812 Signed Impressions: Service Date/Time: Thursday, March 30, 2017 08:28 - CONCLUSION: 1. No DVT right leg. 2. The femoral bypass graft appears occluded. Heber Valenzuela MD Therapeutic Infusion 03/30/17 0000 Signed Impressions: Service Date/Time: Thursday, March 30, 2017 14:47 - CONCLUSION: Uncomplicated initiation of thrombolytic therapy as above. The patient has limb threatening ischemia of the right foot with preserved sensory and motor function. There is acute occlusion of the femoropopliteal bypass as well as the distal trifurcation vessels. No named vessel is seen crossing the ankle joint. The patient will return tomorrow for followup angiogram. Juan Asutin Jr., MD Aorta w/Runoff CTA 03/30/17 0000 Signed Impressions: Service Date/Time: Thursday, March 30, 2017 11:15 - CONCLUSION: 1. Acute thrombosis of the femoropopliteal bypass on the right. Thrombus extends throughout the bypass and into the [place] ekaeq-tda-gjba popliteal artery. The right inflow is patent. Poor evaluation the outflow with no named vessel observed across the ankle joint. 2. Left inflow is patent. Outflow is via the anterior tibial artery. 3. Hepatic steatosis. 4. Colonic diverticulosis. Juan Austin Jr., MD PE at Discharge General: NAD, AAOx3 Chest: CTA Cardiac: Regular Abd: +BS, soft ND/NT Ext: Right foot is slightly warmer than at admission, no palpable pulses in the right foot, some mottling and darkened areas on the toes Hospital Course Arterial occlusion, lower extremity - Pt is a 67 y/o WM with PVD s/p right fem-pop [place] [address] Flores, HTN, hyperlipidemia, and tobacco use. - He presented to the ED at [facility] [place] on 03/30/17 with complaints of right calf pain and right foot coolness that began about 2-3 days ago. - Pts RLE and foot were noticibly cooler than his left on examination. They were unable to get pulses in the right foot on Dopplar - LE US performed in the ED revealed a thrombus in the femoral bypass graft, there was no evidence of DVT. - Dr. Flores was contacted from the ED and he recommended IR evaluation for possible thrombolysis. - CTA with runoff --> Acute thrombosis of the femoropopliteal bypass on the right. Thrombus extends throughout the bypass and into the [place] uzyaa-tqi-moqz popliteal artery. The right inflow is patent. Poor evaluation the outflow with no named vessel observed across the ankle joint. Left inflow is patent. - case d/w Dr. Austin (04/01) - No angiographic improvement of pt's right leg following, TPA - continue heparin - Dr. Flores to consult, awaiting input per Dr. Flores - pt continues with threatening right limb ischemia - Case d/w pt and his at the bedside (04/01) to the best of my abilities. - Pain control PRN - Supportive care - Further recommendations as the case develops HTN (hypertension) - Home meds resumed except HCTZ - Monitor - Vasotec and Clonidine PRN PVD (peripheral vascular disease) - See above - Pt has previously underwent Fem-Pop bypass in 01/[address] Flores and arthrectomy of right popliteal artery in 01/2008 Hypothyroidism - Home meds resumed Pt Condition on Discharge: Stable Discharge Disposition: Discharge Home Discharge Instructions DIET: Follow Instructions for: Heart Healthy Diet Activities you can perform: Weight Bearing as [place] Follow up Referrals: PCP Follow-up - [address] Bravo Vascular Surgery - [address] Flores New Medications: Rivaroxaban (Xarelto) 20 Mg Tab 20 MG PO DAILY for Blood Clot Prevention, #30 TAB 0 Refills Continued Medications: Aspirin (Ecotrin Low Strength) 81 Mg Tabdr 81 MG PO DAILY, #30 TAB 0 Refills Levothyroxine (Synthroid) 125 Mcg Tab 125 MCG PO DAILY for Thyroid, #30 TAB 0 Refills Lisinopril (Lisinopril) 10 Mg Tab 10 MG PO DAILY, #30 TAB 0 Refills Lovastatin (Lovastatin) 40 Mg Tab 60 MG PO DAILY for Cholesterol Management, #30 TAB 0 Refills [Hydrodiuril] () 25 MG PO Sarahy Ureña Apr 02, 2017 11:19
[2017-04-02] MEDS: RIVAROXABAN 20 MG TAB PO SCH (12:38)
[2017-04-03] VITALS: BP 153/78; PULSE 93; RESP 18; TEMP 98.3; O2SAT 95
[2017-04-03] MEDS: CHLORHEXIDINE GLUCONATE 2 % 1 PACK (2 CLOTHS)(taper/protocol) TOPICAL SCH (04:00)
[2017-04-03] MEDS: LEVOTHYROXINE SODIUM 125 MCG TAB PO SCH (04:54)
[2017-04-03 05:49] LABS: AUTOMATED NEUTROPHIL # 6.1 TH/MM3 (1.8-7.7); BASOPHIL # 0.2 TH/MM3 (0-0.2); BASOPHIL % 1.9 % (0.0-2.0); EOSINOPHIL # 0.3 TH/MM3 (0-0.4); HEMATOCRIT 32.8 % (39.0-51.0); HEMOGLOBIN 11.2 GM/DL (13.0-17.0); LYMPHOCYTE # 1.1 TH/MM3 (1.0-4.8); MEAN CELL VOLUME 90.2 FL (80.0-100.0); MEAN CORPUSCULAR HEMOGLOBIN 30.9 PG (27.0-34.0); MEAN CORPUSCULAR HGB CONC 34.3 % (32.0-36.0); MEAN PLATELET VOLUME 7.7 FL (7.0-11.0); MONOCYTE # 0.9 TH/MM3 (0-0.9); NEUT % 71.1 % (16.0-70.0); PLATELET COUNT 254 TH/MM3 (150-450); RED BLOOD COUNT 3.64 MIL/MM3 (4.50-5.90); RED CELL DISTRIBUTION WIDTH 13.2 % (11.6-17.2); WHITE BLOOD COUNT 8.5 TH/MM3 (4.0-11.0)
[2017-04-03 08:00] VITALS: BP 116/60; PULSE 86; RESP 17; TEMP 98.4; O2SAT 98
[2017-04-03] MEDS: RIVAROXABAN 20 MG TAB PO SCH (09:05)
[2017-04-03] MEDS: LISINOPRIL 10 MG TAB PO SCH (09:05)
[2017-04-03] MEDS: ATORVASTATIN 40 MG TAB PO SCH (09:05)
[2017-04-03 09:16] VITALS: PULSE 86
[2017-04-03 11:47] VITALS: PULSE 86
--- NOTE | 2017-04-03 13:01 | MB ---
cc: STEFANY QUIÑONEZ M.D., EDWARD B. DO SUTTON, JAMES DATE OF CONSULTATION 04/02/2017 REASON FOR CONSULTATION Acute thrombosis right femoral-popliteal bypass with limb-threatening right lower extremity ischemia. HISTORY OF PRESENT ILLNESS This 67-year-old hypertensive male smoker presented to the [facility] several days ago following abrupt onset of right lower extremity ischemia manifested by pain and numbness within the right foot with associated pallor. Imaging studies revealed thrombosis of his previously placed right femoral-popliteal bypass. Dr. Yoan Quiñonez initiated TPA thrombolysis which continued for 48 hours and resulted in re-establishment of the in situ vein graft patency. 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 Despite prolonged TPA infusion, patency of the distal tibial vessels could not be reestablished. Presently Mr. Miller reports complete relief of his right lower extremity ischemic complaints. Specifically, he has no pain or numbness and reports fairly normal motor function in the right leg. I performed his right femoral-popliteal bypass approximately 14 years ago for limb-threatening ischemia. 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 Following successful bypass and improvement of right lower extremity perfusion, the gangrenous necrosis spontaneously demarcated, eventually completely lysed and the toe healed quite well. We have followed him routinely over the years with duplex scans. He was scheduled for duplex in January 2017 but for various reasons, that scan was never completed. Prior scans have shown no evidence of significant bypass problems. He has chronic hypertension and he continues to smoke. PHYSICAL EXAMINATION GENERAL: In general a well-developed, well-nourished 67-year-old male with pleasant affect. CARDIAC: Rhythm is sinus. LUNGS: Symmetrically expanded and clear. ABDOMEN: Soft. No palpable aneurysm. EXTREMITIES: Femoral pulses are 2+ and symmetrical. Popliteal pulses . Right dorsalis pedis and posterior tibial pulses are nonpalpable. Doppler flow is robust and aphasic along the course of the right femoral-popliteal in situ vein graft and within the right popliteal. Doppler flow is biphasic along the right anterior tibial but becomes monophasic at and beyond the right ankle. The plantar aspect to the right forefoot exhibits minor, marbled cyanosis. Sensation and motor are completely intact throughout the right leg. ASSESSMENT AND RECOMMENDATIONS I have reviewed the clinical findings and imaging results with Drs. Quiñonez and Latoya. At this point, I see no additional measures that can be undertaken to further improve this gentleman's perfusion, specifically regarding the occluded tibial vessels at the right ankle level. He would probably benefit from empiric therapeutic anticoagulation in conjunction with continued antiplatelet and antihypertensive medications. I have continuously admonished Mr. Miller to stop smoking and again admonished him to do so today. I warned him that continuous smoking would likely eventuate in amputation of his right leg. Thank you for allowing me to participate in Mr. Miller's care. I will continue to follow him on an outpatient basis. Luis Flores MD JTS/AZAM /3:14 PM /12:34 PM
== END 2017-04-03 12:33 | disposition home or self-care (01) | DRG 316 ==
LOC: NEPD 07:36 → NEDA 10:23 → HIMW 16:00 → N07B 04-02 14:47
PROVIDERS: ADMIT Hospitalist; ATTEND Hospitalist
PROC: B41F1ZZ Fluoroscopy of Right Lower Extremity Arteries using Low Osmolar Contrast (ICD-10-PCS; principal; 2017-03-30)
PROC: 3E05317 Introduction of Other Thrombolytic into Peripheral Artery, Percutaneous Approach (ICD-10-PCS; 2017-03-30)
DX: T82.868A Thrombosis due to vascular prosthetic devices, implants and grafts, initial encounter (principal); I65.29 Occlusion and stenosis of unspecified carotid artery; I12.9 Hypertensive chronic kidney disease with stage 1 through stage 4 chronic kidney disease, or unspecified chronic kidney disease; E03.9 Hypothyroidism, unspecified; E78.5 Hyperlipidemia, unspecified; N18.2 Chronic kidney disease, stage 2 (mild); F17.210 Nicotine dependence, cigarettes, uncomplicated; K57.90 Diverticulosis of intestine, part unspecified, without perforation or abscess without bleeding; I70.201 Unspecified atherosclerosis of native arteries of extremities, right leg
CPT/HCPCS: 36247; 37211; 37213; 37214; 75635; 75710; 75774; 76937; 80048; 80053; 83735; 85025; 85027; 85384; 85610; 85730; 87641; 93971; 99152; 99153; 99285; C1757; C1760; C1769; C1887; C1894; G0269; J0690; J1170; J1644; J2250; J2270; J2997; J3010; J3480; J7040; Q9967

== ENCOUNTER 2017-04-21 09:34 | Emergency (ER) | payer MEDICARE ==
[~2017-04-21] VITALS: Ht 172.7 cm; Wt 70.4 kg
[~2017-04-21 09:34] MED LIST changes: +ASPI-147 PO; -ASPI81 PO; -HCTZ25 PO; +HYDRODIURIL PO; -LEVA500T33 PO; -LISI-360 PO; +LISI10TA3 PO; -LOVA1TAB47 PO; +LOVA40TA PO; +XARE20TA PO
[2017-04-21 09:37] VITALS: BP 143/69; PULSE 68; RESP 18; TEMP 97.4; O2SAT 97
--- NOTE | 2017-04-21 09:54 | PD ---
HPI Chief Complaint: Musculoskeletal Complaint Time Seen by Provider: 09:46 Travel History International Travel<30 days: No Contact w/Intl Traveler<30days: No Traveled to known affect area: No History of Present Illness HPI Patient comes in for evaluation of left elbow pain ongoing intermittently for 2 weeks. Patient describes pain as achy pain that is worse at night and certain movement. Patient reports taking [id number] medicines seem to help with the pain. Denies any radiation of pain. Denies any trauma, fevers, IV drug use , chest pain, shortness of breath, weakness, or numbness or tingling. Denies history of gout. PFSH Past Medical History Arthritis: Yes ("probably got it") Cardiovascular Problems: Yes High Cholesterol: Yes Hypertension: Yes Thyroid Disease: Yes (HYPO) Triglycerides - High: Yes Tetanus Vaccination: > 5 Years Past Surgical History Other Surgery: Yes (RIGHT LEG FEM POP) Social History Alcohol Use: Yes (OCCASSIONAL) Tobacco Use: Yes (1 PPD) Substance Use: No Allergies-Medications (Allergen,Severity, Reaction): Coded Allergies: No Known Allergies (Verified Allergy, Unknown, 04/21/17) Reported Meds & Prescriptions Reported Meds & Active Scripts Active Xarelto (Rivaroxaban) 20 Mg Tab 20 Mg PO DAILY Reported Lovastatin 40 Mg Tab 60 Mg PO DAILY Lisinopril 10 Mg Tab 10 Mg PO DAILY [Hydrodiuril] 25 Mg PO Ecotrin Low Strength (Aspirin) 81 Mg Tabdr 81 Mg PO DAILY Synthroid (Levothyroxine Sodium) 125 Mcg Tab 125 Mcg PO DAILY Review of Systems Except as stated in HPI: all other systems reviewed are Neg Physical Exam Narrative GENERAL: Well-developed, well nourished, in no acute distress, and non-ill appearing. SKIN: Focused skin assessment warm and dry. HEAD: Atraumatic. Normocephalic. EYES: Pupils equal and round. EOMI. No scleral icterus. No injection or drainage. ENT: No nasal bleeding or discharge. Mucous membranes pink and moist. NECK: Trachea midline. Supple. No nuclear rigidity. CARDIOVASCULAR: Radial pulses 2+, intact, and equal bilaterally. Capillary refill less than 2 seconds. RESPIRATORY: No accessory muscle use. No respiratory distress. MUSCULOSKELETAL: No obvious deformities. No clubbing. No cyanosis. No edema. Full range of motion. Elbow : FROM and strength equal BL with passive flexion, extension, and pronation/supination. No laxity noted with varus and valgus maneuvers. Pulses equal BL distal to injury. Capillary refill less than 2 seconds distal to injury and equal BL. FROM distal to injury and equal BL. Strength distal to injury equal BL. NV intact distal to injury and equal BL. Flexion and extension of thumb equal BL. Equal strength and movement with abduction/adductions of BL fingers. Director Of Physician Practices strength equal BL. No reproducible tenderness. No crepitus. No fluctuation. No signs of bursitis. NEUROLOGICAL: Awake and alert. No obvious cranial nerve deficits. Motor grossly within normal limits. Normal speech. PSYCHIATRIC: Appropriate mood and affect; insight and judgment normal. Data Data Last Documented VS Vital Signs Date Time Temp Pulse Resp B/P (MAP) Pulse Ox O2 Delivery O2 Flow Rate FiO2 04/21/17 09:37 97.4 68 18 143/69 (93) 97 Orders Orders Elbow, Complete (4 Vws) (04/21/17 ) Ed Discharge Order (04/21/17 10:37) MDM Medical Decision Making Medical Screen Exam Complete: Yes Emergency Medical Condition: Yes Interpretation(s) Last Impressions Elbow X-Ray 04/21/17 0000 Signed Impressions: Service Date/Time: Friday, April 21, 2017 10:10 - CONCLUSION: Negative examination. Juan Tellez MD Differential Diagnosis Fracture, strain, arthritis, tumor, bursitis, gout, pseudogout Narrative Course There is no clinical evidence for fracture, bursitis, septic joint, or septic arthritis. There is no clinical evidence to suspect bony injury by exam. No obvious ligamental injury or internal derangement is noted at this time. The distal extremity appears neurovascularly intact, without evidence of neurovascular injury nor compartment syndrome. Tendon exam also was intact. The patient was discharged and given warnings for vascular compromise. The patient is to follow up with primary care provider and/or orthopedics. The patient agrees with plan. Patient in no obvious distress upon re-evaluation. All pertinent Radiology result(s) discussed with patient. Any questions/concerns in reference to patient diagnosis/condition discussed and clarified prior to patient's discharge. Reinforced sheer importance of close follow up with patient's primary physician or primary care clinic. Instructed patient to return to ED immediately, if symptoms return/worsen. Patient showed understanding of above instructions. Further instructions and recommendations were detailed in discharge paperwork. Patient ambulated without difficulty out of ED at discharge. Diagnosis Primary Impression: Left elbow pain Referrals: Perico Tavarez MD Patient Instructions: Arthralgia (ED), General Instructions Additional Instructions: Follow-up with your primary care physician and/or orthopedic in 3-5 days for reevaluation. Use [id number] Tylenol as needed for pain. Follow instructions on the packaging. Return to the emergency department if symptoms get worse. Disposition: 01 DISCHARGE HOME Condition: Stable Scot Burgos Apr 21, 2017 09:54
--- NOTE | 2017-04-21 10:25 | RADRPT ---
EXAM DATE/TIME: 04/21/2017 10:10 [facility] COMPARISON: No previous studies available for comparison. INDICATIONS : Intermittent elbow pain with no known injury x 2 weeks. MEDICAL HISTORY : Hypothyroidism. Hypercholesterolemia. Arthritis. Hypertension. SURGICAL HISTORY : Right femoral popliteal surgery. ENCOUNTER: Initial ACUITY: 2 weeks PAIN SCORE: 5/10 LOCATION: Left elbow FINDINGS: Multiple view examination of the left elbow demonstrates no soft tissue swelling, joint effusion, or fracture. The osseous structures are in normal alignment. Bony mineralization is normal. CONCLUSION: Negative examination. Juan Tellez MD on April 21, 2017 at 10:23 Board Certified Radiologist. This report was verified electronically.
== END 2017-04-21 10:49 | disposition home or self-care (01) ==
LOC: PHEFT 09:34
DX: M25.522 Pain in left elbow (principal); I10 Essential (primary) hypertension; E03.9 Hypothyroidism, unspecified; E78.5 Hyperlipidemia, unspecified; F17.200 Nicotine dependence, unspecified, uncomplicated
CPT/HCPCS: 73080; 99283

== ENCOUNTER → 2017-05-22 | Day surgery (SDC) | payer MEDICARE ==
[~2017-05-22] VITALS: Ht 172.7 cm; Wt 71.4 kg
[~2017-05-22] MED LIST changes: +*morphine SULFATE 10 MG/ML PERIprocedure ONLY ONE; +ACETAMINOPHEN/HYDROcodone 325 MG/5 MG TAB PO PRN; +ASPIRIN EC 81 MG TABEC PO SCH; +BUPIVACAINE/EPINEPHRINE 0.5% PF 30 ML VIAL ONE; +CHLORHEXIDINE GLUCONATE 2 % 1 PACK (2 CLOTHS) TOPICAL PRN; +DEXAMETHASONE SOD PHOS 4 MG/ML VIAL IV ONE; +DO NOT ADM ANY ANTICOAGULANT DRUGS PRN; +HEPARIN SODIUM - IV 10,000 UNITS/10 ML VIAL ONE; +HEPARIN SODIUM - SQ 10,000 UNITS/ML VIAL ONE; +HYDR25TA5 PO; +HYDROCHLOROTHIAZIDE 25 MG TAB PO SCH; -HYDRODIURIL PO; +IOHEXOL 300 MG/ML 50 ML BTL (for RAD DIAG) IVCONTRAST ONE; +LACTATED RINGER'S 1000 ML INJ 500 ML IV SCH; +LACTATED RINGER'S 1000 ML IV PRN; +LEVOTHYROXINE SODIUM 125 MCG TAB PO SCH; +LIDOCAINE HCL 1% PF 5 ML SYRINGE OTHER ONE; +LISINOPRIL 10 MG TAB PO SCH; +MAGNESIUM SULFATE 1 GM/100 ML IV PRN; +METOPROLOL TARTRATE 25 MG TAB PO PRN; +MIDAZOLAM HCL 2 MG/2 ML VIAL ONE; +MORPHINE SULFATE 4 MG/ML INJ IV PUSH PRN; +ONDANSETRON HCL 4 MG/2 ML VIAL IV PUSH PRN; +POTASSIUM CHLOR 20 MEQ 100 ML x 2 BAGS IV PRN; +POTASSIUM CHLOR 20 MEQ/100 ML x 1 BAG IV PRN; +POTASSIUM PHOSPHATE 21 MMOL/NS 250 ML IV PRN; +POVIDONE IODINE 5% (ANTISEPSIS KIT) 4 APPLICATIONS EACH NARE PRN; +PRAVASTATIN SOD 20 MG TAB PO SCH; +PROPOFOL 200 MG/20 ML AMP IV ONE; +PROPOFOL 200 MG/20 ML AMP ONE; +PROTAMINE SULFATE 50 MG/5 ML VIAL ONE; +SODIUM CHLORID 0.9% 500 ML INJ 500 ML IV ONE; +SODIUM CHLORID 0.9% 500 ML IV PRN; +SODIUM CHLORIDE 0.9% 20 ML VIAL ONE; +SODIUM CHLORIDE 0.9% FLUSH 10 ML FLUSH IV FLUSH PRN; +SODIUM CHLORIDE 0.9% FLUSH 10 ML FLUSH IV FLUSH SCH; +ceFAZolin 1,000 MG/NS 100 ML IV SCH; +ePHEDrine/NS 25 MG/5 ML SYRINGE IV ONE
[2017-05-22 07:11] LABS: AUTOMATED NEUTROPHIL # 4.4 TH/MM3 (1.8-7.7); BASOPHIL # 0.1 TH/MM3 (0-0.2); BASOPHIL % 0.9 % (0.0-2.0); EOSINOPHIL # 0.2 TH/MM3 (0-0.4); EOSINOPHIL % 3.3 % (0.0-4.0); HEMATOCRIT 39.2 % (39.0-51.0); HEMOGLOBIN 13.6 GM/DL (13.0-17.0); LYMPH % 19.1 % (9.0-44.0); LYMPHOCYTE # 1.3 TH/MM3 (1.0-4.8); MEAN CORPUSCULAR HEMOGLOBIN 30.8 PG (27.0-34.0); MEAN CORPUSCULAR HGB CONC 34.7 % (32.0-36.0); MONO % 11.5 % (0.0-8.0); MONOCYTE # 0.8 TH/MM3 (0-0.9); NEUT % 65.2 % (16.0-70.0); PLATELET COUNT 397 TH/MM3 (150-450); RED BLOOD COUNT 4.41 MIL/MM3 (4.50-5.90); RED CELL DISTRIBUTION WIDTH 14.2 % (11.6-17.2); WHITE BLOOD COUNT 6.8 TH/MM3 (4.0-11.0)
[2017-05-22 07:18] LABS: PROTHROMBIN TIME - PATIENT 10.2 SEC (9.8-11.6)
[2017-05-22 07:25] LABS: BICARBONATE 27.6 MEQ/L (21.0-32.0); CALCIUM 8.8 MG/DL (8.5-10.1); CREATININE 0.96 MG/DL (0.60-1.30)
--- NOTE | 2017-05-22 16:09 | MP ---
cc: Luis Flores MD DATE OF OPERATION: 05/22/2017 PREOPERATIVE DIAGNOSIS: Right lower extremity ischemia - status post tissue plasminogen activator (t-PA) thrombolysis of acutely thrombosed right femoral-popliteal bypass. POSTOPERATIVE DIAGNOSIS: Right lower extremity ischemia - status post tissue plasminogen activator (t-PA) thrombolysis of acutely thrombosed right femoral-popliteal bypass. PROCEDURE PERFORMED: Selective right femoral arteriogram, right popliteal PTBA. SURGEON: Sammy Flores MD PRINCIPAL DATA ARCHITECT: HERNANDO Cullen ANESTHESIA: Local, MAC. DESCRIPTION OF THE OPERATIVE PROCEDURE: With the patient in the supine position and under IV sedation, the lower abdomen, both groins and entire right lower extremity were prepped with Betadine and draped in a sterile fashion. Following a protocol timeout, the skin and subcutaneous tissues surrounding the proposed left common femoral access site was preemptively infiltrated with 0.5% Marcaine with epinephrine. Utilizing ultrasound guidance, an 18-gauge thin-wall needle was inserted into the left common Femoral lumen and a J wire advanced retrograde into the iliac artery. A 5-Maori hemostatic sheath was deployed over the J wire. An Advantage guidewire Omni catheter combination was navigated into the suprarenal aorta, over the aortic bifurcation into the left iliac. The Omni catheter was exchanged for a Quick-Cross catheter, which was parked within the right common femoral lumen. Dilute contrast was injected in conjunction with digital C-arm fluoroscopic imaging, outlining the entire right lower extremity perfusion with findings as follows: The right common femoral and profunda femoral arteries were widely patent. In addition above knee the in situ femoral-popliteal bypass vein graft was widely patent, unrestricted throughout. Immediately at and just beyond the popliteal anastomosis, arterial ectasia appeared along with a focal, web-like stenosis, which appeared to restrict flow into the below-knee popliteal. The below-knee popliteal was of normal appearance. However, the posterior tibial was occluded throughout. The peroneal appeared somewhat atretic. The anterior tibial provided dominant runoff, but occluded immediately above the malleolar level. Generous collaterals perfused the entire foot. The advantage guidewire, Quick-Cross catheter was then negotiated across the popliteal anastomosis with roadmapping assistance. This was followed by balloon angioplasty of the popliteal anastomosis, web-like stenosis and above the popliteal with a 5 mm x 80 mm balloon, inflated to 6 atmospheres, 2 minute inflation. It should be noted that prior to angioplasty, the patient was systemically heparinized with 4000 units and ACT measured 253. At the conclusion of the balloon angioplasty, heparin was not reversed. Completion angiogram revealed markedly improved flow across the popliteal, eradication of the focal web-like stenosis and unchanged perfusion distally. The patient returned to Recovery in stable condition, having tolerated the procedure well. MD DIMA Hidalgo/CECI , 03:13 PM , 04:07 PM
[2017-05-22 16:50] VITALS: BP 139/75; PULSE 89; RESP 16; TEMP 97.7; O2SAT 95
--- NOTE | 2017-05-22 19:52 | EKG ---
Date Performed: 05/22/2017 Time Performed: 06:44:06 PTAGE: 67 years EKG: Sinus rhythm POSSIBLE INFERIOR MYOCARDIAL INFARCTION , PROBABLY OLD Since previous tracing, no significant change noted BORDERLINE ECG PREVIOUS TRACING : 03/19/2013 02.49 DOCTOR: Claudio Gallegos Interpretating Date/Time 05/22/2017 19:50:08
== END | disposition home or self-care (01) ==
LOC: HCVO 06:02
PROVIDERS: ATTEND Surgery Vascular Surgery
DX: I99.8 Other disorder of circulatory system (principal); Z79.899 Other long term (current) drug therapy; Z79.01 Long term (current) use of anticoagulants
CPT/HCPCS: 01440; 37224; 75710; 76937; 80048; 85025; 85610; 85730; 86850; 86900; 86901; 93005; C1725; C1769; J0690; J1100; J1644; J2250; J2270; J2720; J7040; J7120; Q9967